=== PATIENT | male | born 1960 | race Hispanic/Latino ===

== ENCOUNTER 2019-09-04 12:48 | Inpatient (IN) | payer MEDICARE ==
[~2019-09-04] VITALS: Ht 177.8 cm; Wt 93.0 kg
[2019-09-04] MEDS: MIDODRINE HCL 5 MG TABLET PO SCH (06:00)
[2019-09-04] MEDS ORDERED: LIDOCAINE 2G/250ML 250 ML IV ONE (13:01)
[2019-09-04] MEDS ORDERED: LIDOCAINE PF 2% 5ML ABBOJECT IVP ONE (13:01)
[2019-09-04] MEDS ORDERED: AMIODARONE HCL 50 MG/ML 3 ML VIAL IVP ONE (13:01)
[2019-09-04] MEDS ORDERED: EPINEPHRINE 0.1 MG/ML 10 ML SYG IVP ONE (13:01)
[2019-09-04] MEDS ORDERED: DOPAMINE HCL 400 MG/D5%-WATER 250 ML IV ONE (13:01)
[2019-09-04] MEDS ORDERED: MAGNESIUM SULFATE 1 GM/2 ML VIAL IM ONE (13:01)
[2019-09-04] MEDS ORDERED: SODIUM BICARB 8.4% 50ML SYRINGE IVP ONE (13:01)
[2019-09-04] MEDS ORDERED: CALCIUM CHLORIDE 100 MG/ML 10 ML SYG IVP ONE (13:01)
[2019-09-04] MEDS ORDERED: NOREPINEPHRINE BITARTRATE 1 MG/1 ML ML IV ONE (13:01)
[2019-09-04 14:26] LABS: BASOPHILS % (AUTO) 1.1 % (0.0-5.0); EOSINOPHILS % (AUTO) 3.4 % (0.0-8.0); HEMATOCRIT 40.8 % (42-54); LYMPHOCYTES % (AUTO) 8.9 % (21.0-51.0); MEAN CORPUSCULAR HEMOGLOBIN 28.9 pg (27.0-33.0); MEAN CORPUSCULAR HGB CONC 32.4 g/dL (32.0-36.0); MEAN CORPUSCULAR VOLUME 89.5 fL (79-99); MONOCYTES % (AUTO) 8.7 % (3.0-13.0); NEUTROPHILS % (AUTO) 77.6 % (40.0-77.0); PLATELET COUNT (AUTO) 244 K/uL (130-400); RED BLOOD CELL COUNT(AUTO) 4.56 MIL/uL (4.50-6.20); RED CELL DISTRIBUTION WIDTH 16.2 % (11.0-15.5); WHITE BLOOD COUNT (AUTO) 10.9 K/uL (4.8-10.8)
[2019-09-04 14:27] LABS: INR 1.2 (0.85-1.15); PARTIAL THROMBOPLASTIN TIME 29.6 SEC (26.3-35.5); PROTHROMBIN TIME 12.5 SEC (9.6-11.6)
[2019-09-04 15:16] LABS: CREATININE 7.2 mg/dL (0.5-1.5); POTASSIUM 3.5 mmol/L (3.5-5.1)
[2019-09-04 20:00] VITALS: BP 126/64
[2019-09-04 20:25] VITALS: BP 126/64
--- NOTE | 2019-09-04 20:25 | NUR ---
ER ADMIT Admitted from ER accompanied per .Pt has left foot gangrene,wrapped with kerlix and amilcar wrap.As per pt.Dr Ghosh changed dressing in ER.Pt denies any pain or discomfort.[facility],Piv to left wrist.No redness,no swelling noted.Rt Bka uses prosthesis.Pt is Anuric,states he has Rt AV graft and goes MWF.Pt is pending to be seen by Dr Treviño as per ER nurse report Ele Gilman Np for Dr Treviño was notified in ER.
[2019-09-04] MEDS ORDERED: ALBUMIN (HUMAN) 25% 50 ML IV.SOLN. IV SCH (22:00)
[2019-09-04] MEDS ORDERED: DEXTROSE PO SCH (22:00)
[2019-09-04] MEDS ORDERED: GLUCAGON HCL 1 MG IJ SCH (22:00)
[2019-09-04] MEDS ORDERED: ARTIFICAL TEARS SOL 15 ML OP PRN (22:00)
[2019-09-04] MEDS ORDERED: [UNRECOGNIZED DRUG - OTHER] PO SCH (22:00)
[2019-09-04] MEDS ORDERED: HEPARIN SODIUM PORCINE IJ SCH (22:00)
[2019-09-04] MEDS ORDERED: INSULIN HUMULIN R 100 UNIT/ML 3ML SQ SCH (22:00)
[2019-09-04] MEDS ORDERED: METO5TAB2 PO (22:23)
[2019-09-04] MEDS ORDERED: SIME80TA12 PO (22:23)
[2019-09-04] MEDS ORDERED: HEPA500035 IVCATH (22:23)
[2019-09-04] MEDS ORDERED: GLUC1VIA14 IJ (22:23)
[2019-09-04] MEDS ORDERED: PANT40TA25 PO (22:23)
[2019-09-04] MEDS ORDERED: PROT946L PO (22:23)
[2019-09-04] MEDS ORDERED: INSU10VI3 SQ (22:23)
[2019-09-04] MEDS ORDERED: latanaprost OU (22:23)
[2019-09-04] MEDS ORDERED: LACT10SO9 PO (22:23)
[2019-09-04] MEDS ORDERED: SEVE800T7 PO (22:23)
[2019-09-04] MEDS ORDERED: CLOP75TA14 PO (22:23)
[2019-09-04] MEDS ORDERED: HYDR-4060 PO (22:23)
[2019-09-04] MEDS ORDERED: METO25TA6 PO (22:23)
[2019-09-04] MEDS ORDERED: CEFT1VIA IJ (22:23)
[2019-09-04] MEDS ORDERED: AEC81 PO (22:23)
[2019-09-04] MEDS ORDERED: ALBU50IV5 IV (22:23)
[2019-09-04] MEDS ORDERED: MIDO10TA PO (22:23)
[2019-09-04] MEDS ORDERED: INSREG SQ (22:23)
[2019-09-04] MEDS ORDERED: DEXT38GE12 PO (22:23)
[2019-09-04] MEDS ORDERED: LORA0.5T83 PO (22:23)
[2019-09-04] MEDS ORDERED: FOLI0.8T2 PO (22:23)
[2019-09-04] MEDS ORDERED: ISOS30TA6 PO (22:23)
[2019-09-04] MEDS ORDERED: ATOR10 PO (22:23)
[2019-09-04] MEDS ORDERED: RISP0.2515 PO (22:23)
[2019-09-04] MEDS ORDERED: ACET-2247 PO (22:23)
[2019-09-04] MEDS ORDERED: DEXT1DRO OP (22:23)
[2019-09-04] MEDS ORDERED: DEXT50DI9 IV (22:23)
[2019-09-04] MEDS ORDERED: GABA-531 PO (22:23)
[2019-09-04] MEDS: SIMETHICONE 80 MG TAB.CHEW PO SCH (23:14)
[2019-09-04] MEDS ORDERED: DEXTROSE 50%-WATER 50 ML DISP.SYRIN IV PRN (23:15)
[2019-09-04] MEDS ORDERED: GLUCAGON 1MG KIT 1 MG ML IM PRN (23:15)
[2019-09-04] MEDS: ACETAMINOPHEN 325 MG TAB PO PRN (23:15)
[2019-09-05] VITALS (7 sets, daily range): BP systolic 91–134; BP diastolic 45–77
[2019-09-05] MEDS: HYDROCODONE/ACETAMINOPHEN 5/325 MG TAB PO PRN (03:14)
[2019-09-05] MEDS: SIMETHICONE 80 MG TAB.CHEW PO SCH ×4 (04:00→22:11)
[2019-09-05] MEDS: METOCLOPRAMIDE 5 MG TABLET PO SCH ×3 (05:14→16:31)
[2019-09-05] MEDS: PANTOPRAZOLE SODIUM 40 MG TABLET.DR PO SCH (05:14)
[2019-09-05] MEDS: INSULIN HUMULIN R 100 UNIT/ML 3ML SQ SCH ×4 (06:06→20:47)
[2019-09-05] MEDS ORDERED: NITR0.4T SL (06:23)
[2019-09-05] MEDS ORDERED: NITROGLYCERIN 0.4 MG SL TAB SL PRN (06:30)
[2019-09-05] MEDS ORDERED: PROTEIN SUPPLEMENT PO SCH (09:00)
[2019-09-05] MEDS: METOPROLOL TARTRATE 25 MG TAB PO SCH ×2 (09:00→20:39)
--- NOTE | 2019-09-05 09:00 | NUR ---
DR AGUIRRE/NEPHRO CONSULT PAGED DR AGUIRRE REGARDING CONSULT FOR HD MWF, PENDING CB
[2019-09-05] MEDS: ASPIRIN 81 MG EC TAB PO SCH (09:28)
[2019-09-05] MEDS: CLOPIDOGREL BISULFATE 75 MG TAB PO SCH (09:29)
[2019-09-05] MEDS: ISOSORBIDE MONO 30MG TAB SR PO SCH (09:29)
[2019-09-05] MEDS: FOLIC ACID/VITAMIN B COMP W-C 1 CAP TAB PO SCH (09:29)
[2019-09-05] MEDS: SEVELAMER HCL 800 MG TABLET PO SCH ×3 (09:29→16:31)
[2019-09-05] MEDS: CEFTAZIDIME PENTAHYDRATE 1 GM/VIAL IV SCH (09:31)
[2019-09-05] MEDS: INSULIN HUMULIN 70/30 100 UNIT/ML 3ML SQ SCH ×2 (09:35→20:43)
--- NOTE | 2019-09-05 13:00 | NUR ---
INITIAL C,M NOTE AND DC PLAN RECD CALL FROM [facility] THAT PATIENT WAS AN ADMIT FROM [facility] FOR VASCULAR INTERVENTION AND IWLL RETURN TO COMPLETE ABX. SPOKE TO PURVI AT BEDSIDE, PT AIMEE, ALONE, LIVES WITH SON, HAS WC. PATIENT HAS BEEN ON HD FOR > 10 YEARS. PT AGREES WILL RETURN TO [facility] WHEN VASCULAR INTERVENTION COMPLETED, VERBAL SINDY OBTAINED, PT ON CONTACT PRECAUTIONS, NO FMAILY AT BEDSIDE, SCOTTIE COATES NOTIFIED, AWAITING MD INPUT -- WILL COMPLETE MOT/EMS FORMS Addendum: 09/07/19 at 0809 by WILLA SCHILLING RN CM Amended: Links added.
--- NOTE | 2019-09-05 19:39 | NUR ---
FF UP Paged dr pete re consult.
--- NOTE | 2019-09-05 19:47 | NUR ---
DIALYSIS Dr AGUIRRE notified re consult.Notified Juhi from dialysis.
[2019-09-05] MEDS: ATORVASTATIN CALCIUM 10 MG TABLET PO SCH (20:39)
[2019-09-05] MEDS: GABAPENTIN 300 MG CAPSULE PO SCH (20:47)
[2019-09-05] MEDS ORDERED: LATANOPROST 2.5 ML DROPS OU SCH (21:00)
--- NOTE | 2019-09-05 21:07 | NUR ---
MD Dr FROST HERE AND UPSET THAT DR PEARSON HAS NOT SHOWN UP YET.HE SAID HE WILL CALL HIM HIMSELF.HE SAID HE PUT PT IN THE HOSPITAL TO HAVE A BYPASS NOT BE SEEN BY CARDIOLOGY FOR INTERVENTION.
[2019-09-05] MEDS: LACTULOSE 20 GM/30 ML UDCUP PO PRN (22:11)
[2019-09-05] MEDS: RISPERIDONE 0.5 MG TABLET PO SCH (22:12)
[2019-09-06 03:00] VITALS: BP 122/57
[2019-09-06] MEDS: SIMETHICONE 80 MG TAB.CHEW PO SCH ×4 (04:39→22:42)
[2019-09-06 05:14] LABS: HEMATOCRIT 39.2 % (42-54); MEAN CORPUSCULAR HEMOGLOBIN 28.5 pg (27.0-33.0); MEAN CORPUSCULAR HGB CONC 31.9 g/dL (32.0-36.0); MEAN CORPUSCULAR VOLUME 89.3 fL (79-99); PLATELET COUNT (AUTO) 254 K/uL (130-400); RED BLOOD CELL COUNT(AUTO) 4.39 MIL/uL (4.50-6.20); RED CELL DISTRIBUTION WIDTH 15.9 % (11.0-15.5); WHITE BLOOD COUNT (AUTO) 10.2 K/uL (4.8-10.8)
[2019-09-06 05:29] LABS: MAGNESIUM 2.3 mg/dL (1.80-2.40); PHOSPHORUS 4.6 mg/dL (2.5-4.9); POTASSIUM 4.3 mmol/L (3.5-5.1)
[2019-09-06] MEDS: PANTOPRAZOLE SODIUM 40 MG TABLET.DR PO SCH (05:30)
[2019-09-06] MEDS: METOCLOPRAMIDE 5 MG TABLET PO SCH ×3 (05:30→16:58)
[2019-09-06 05:33] LABS: CREATININE 9.8 mg/dL (0.5-1.5)
[2019-09-06] MEDS: INSULIN HUMULIN R 100 UNIT/ML 3ML SQ SCH ×4 (06:01→20:52)
--- NOTE | 2019-09-06 06:38 | NUR ---
MIDODRINE Midodrine to be given 30 min prior to hemodialysis as per dialysis nurse.
[2019-09-06 07:30] VITALS: BP 95/56
[2019-09-06] MEDS: SEVELAMER HCL 800 MG TABLET PO SCH ×3 (08:00→16:58)
[2019-09-06] MEDS ORDERED: ARTIFICAL TEARS SOL 15 ML OP PRN (08:00)
[2019-09-06] MEDS: METOPROLOL TARTRATE 25 MG TAB PO SCH ×2 (08:21→20:43)
--- NOTE | 2019-09-06 08:30 | NUR ---
DR NINO MADE ROUNDS ON PATIENT ,PER MARY WILL PERSONALLY CALL DR FROST HIMSELF REGARDING PLAN
[2019-09-06] MEDS: CLOPIDOGREL BISULFATE 75 MG TAB PO SCH (08:46)
[2019-09-06] MEDS: ASPIRIN 81 MG EC TAB PO SCH (08:46)
[2019-09-06] MEDS: MIDODRINE HCL 5 MG TABLET PO SCH (08:46)
[2019-09-06] MEDS: FOLIC ACID/VITAMIN B COMP W-C 1 CAP TAB PO SCH (08:46)
[2019-09-06] MEDS: ISOSORBIDE MONO 30MG TAB SR PO SCH (09:00)
[2019-09-06] MEDS ORDERED: NITROGLYCERIN 0.4 MG SL TAB SL PRN (10:45)
[2019-09-06] MEDS ORDERED: SODIUM CHLORIDE 0.9% 1000ML 1,000 ML IV PRN (10:45)
[2019-09-06] MEDS ORDERED: ACETAMINOPHEN 325 MG TAB PO PRN (10:45)
[2019-09-06] MEDS ORDERED: 0.9% SODIUM CHLORIDE 1000 ML IV BAG IV PRN (10:45)
[2019-09-06 11:00] VITALS: BP 113/77
[2019-09-06] MEDS ORDERED: ALBUMIN (HUMAN) 25% 200 ML IV SCH (11:15)
--- NOTE | 2019-09-06 11:37 | NUR ---
CALLED TO DR FROST REGARDING DR CASTILLO CALLING HIM AND PLAN .. PER DID SPEAK WITH DR CASTILLO AND PER DR CASTILLO ALREADY SIGNED OFF AND GAVE HIS OPINION BUT STILL WANTING DR PEARSON REGARDING A SECOND OPINION PER FAMILY REQUEST IF SOMETHING CAN BE DONE ON CIRCULATION. ALSO STATED SPOKE WITH AGUILAR YESTERDAY BUT WAITING ON HER AND PEARSON TO EVALUATE PATIENT AND TO MAKE A DECISION ..
[2019-09-06] MEDS: ALBUMIN (HUMAN) 25% 50 ML IV SCH (11:50)
[2019-09-06] MEDS: INSULIN HUMULIN 70/30 100 UNIT/ML 3ML SQ SCH ×2 (11:57→20:51)
[2019-09-06 16:00] VITALS: BP 102/34
--- NOTE | 2019-09-06 16:07 | NUR ---
RD NOTIFICATION DX LEFT FOOT GANGRENE. DIET: RENAL DIALYSIS. PO INTAKE 100% AND HAS GOOD APPETITE. PT IS ON DIALYSIS AT THIS TIME. LABS REVIEWED (BUN 72, CRE 9.8, GFR 6). MEDS REVIEWED. S/P BKA, S/P AMPUTATIONS. LBM: 09/04. NO COMPLAINS OF N/V/C/D AT THIS TIME. RD RECOMMEND LOW PROTEIN DUE TO ELEVATED CRE RECOMMEND 500MG VITAMIN C BID - AID WOUND HEALING RECOMMEND 220MG ZINC SULFATE QD FOR 14 DAYS - AID WOUND HEALING MONITOR LABS, BM, PO INTAKE Addendum: 09/06/19 at [address] Amended: Links added.
[2019-09-06] MEDS: CEFTAZIDIME PENTAHYDRATE 1 GM/VIAL IV SCH (16:58)
[2019-09-06 19:00] VITALS: BP 99/52
[2019-09-06] MEDS: ATORVASTATIN CALCIUM 10 MG TABLET PO SCH (20:43)
[2019-09-06] MEDS: RISPERIDONE 0.5 MG TABLET PO SCH (20:43)
[2019-09-06] MEDS: GABAPENTIN 300 MG CAPSULE PO SCH (20:43)
--- NOTE | 2019-09-06 20:45 | NUR ---
MEDS SHIFT ASSESSMENT DONE, PLEASE REFER TO CHART. DUE MEDS ADMINISTERED, TOLERATED WELL. DR FROST IN AND CHANGED LEFT FOOT DRESSING. KEPT RESTED AND COMFORTABLE. CALL LIGHT WITHIN REACH. WILL MONITOR PT. PT'S SPOUSE AT BEDSIDE.
[2019-09-06] MEDS: LATANOPROST 2.5 ML DROPS OU SCH (21:26)
[2019-09-07] VITALS: BP 123/61
--- NOTE | 2019-09-07 02:00 | NUR ---
ROUNDS PT FAIRLY ASLEEP WITH RESPIRATIONS EVEN AND UNLABORED. NO NOTED DISTRESS. KEPT RESTED AND COMFORTABLE. CALL LIGHT WITHIN REACH. WILL MONITOR PT.
[2019-09-07 04:00] VITALS: BP 104/71
[2019-09-07] MEDS: SIMETHICONE 80 MG TAB.CHEW PO SCH ×4 (04:04→22:18)
[2019-09-07 04:48] LABS: HEMATOCRIT 39.9 % (42-54); MEAN CORPUSCULAR HGB CONC 31.8 g/dL (32.0-36.0); MEAN CORPUSCULAR VOLUME 91.1 fL (79-99); PLATELET COUNT (AUTO) 233 K/uL (130-400); RED BLOOD CELL COUNT(AUTO) 4.38 MIL/uL (4.50-6.20); RED CELL DISTRIBUTION WIDTH 16.3 % (11.0-15.5); WHITE BLOOD COUNT (AUTO) 9.1 K/uL (4.8-10.8)
[2019-09-07 05:34] LABS: CREATININE 7.8 mg/dL (0.5-1.5); POTASSIUM 4.3 mmol/L (3.5-5.1)
[2019-09-07] MEDS: METOCLOPRAMIDE 5 MG TABLET PO SCH ×3 (05:51→15:46)
[2019-09-07] MEDS: PANTOPRAZOLE SODIUM 40 MG TABLET.DR PO SCH ×2 (05:51→08:54)
--- NOTE | 2019-09-07 05:51 | NUR ---
MEDS DUE MEDS WERE ABOUT TO BE GIVEN BUT PT STATED HE WILL TAKE MEDS JUST BEFORE HE WILL EAT. EXPLAINED THAT MEDS CAN BE TAKEN 2 HRS PRIOR TO BREAKFAST. PT STILL CLAIMS HE WILL TAKE IT JUST BEFORE HE WILL EAT. WILL FOLLOW UP ON MEDS.
[2019-09-07] MEDS: INSULIN HUMULIN R 100 UNIT/ML 3ML SQ SCH ×4 (05:54→20:54)
[2019-09-07 07:30] VITALS: BP 93/65
[2019-09-07] MEDS: ISOSORBIDE MONO 30MG TAB SR PO SCH (08:53)
[2019-09-07] MEDS: FOLIC ACID/VITAMIN B COMP W-C 1 CAP TAB PO SCH (08:53)
[2019-09-07] MEDS: METOPROLOL TARTRATE 25 MG TAB PO SCH ×2 (08:53→22:02)
[2019-09-07] MEDS: CLOPIDOGREL BISULFATE 75 MG TAB PO SCH (08:54)
[2019-09-07] MEDS: ASPIRIN 81 MG EC TAB PO SCH (08:54)
[2019-09-07] MEDS: MIDODRINE HCL 5 MG TABLET PO SCH (08:54)
[2019-09-07] MEDS: SEVELAMER HCL 800 MG TABLET PO SCH ×3 (08:54→17:36)
[2019-09-07] MEDS: CEFTAZIDIME PENTAHYDRATE 1 GM/VIAL IV SCH (08:55)
[2019-09-07] MEDS: INSULIN HUMULIN 70/30 100 UNIT/ML 3ML SQ SCH ×2 (08:56→22:11)
[2019-09-07 11:00] VITALS: BP 112/78
[2019-09-07 16:00] VITALS: BP 119/73
[2019-09-07 19:00] VITALS: BP 124/77
[2019-09-07] MEDS: ATORVASTATIN CALCIUM 10 MG TABLET PO SCH (22:02)
[2019-09-07] MEDS: RISPERIDONE 0.5 MG TABLET PO SCH (22:02)
[2019-09-07] MEDS: GABAPENTIN 300 MG CAPSULE PO SCH (22:02)
[2019-09-07] MEDS: LATANOPROST 2.5 ML DROPS OU SCH (22:06)
[2019-09-08] VITALS (19 sets, daily range): BP systolic 106–134; BP diastolic 47–77
[2019-09-08] MEDS ORDERED: CEFAZOLIN SODIUM 1 GM VIAL IVP PRN
[2019-09-08] MEDS: SIMETHICONE 80 MG TAB.CHEW PO SCH ×4 (04:00→22:00)
[2019-09-08 04:41] LABS: HEMATOCRIT 41.4 % (42-54); MEAN CORPUSCULAR HEMOGLOBIN 28.6 pg (27.0-33.0); MEAN CORPUSCULAR HGB CONC 31.9 g/dL (32.0-36.0); MEAN CORPUSCULAR VOLUME 89.6 fL (79-99); PLATELET COUNT (AUTO) 245 K/uL (130-400); RED BLOOD CELL COUNT(AUTO) 4.62 MIL/uL (4.50-6.20); RED CELL DISTRIBUTION WIDTH 15.9 % (11.0-15.5)
[2019-09-08 04:51] LABS: INR 1.21 (0.85-1.15); PROTHROMBIN TIME 12.6 SEC (9.6-11.6)
[2019-09-08 04:52] LABS: POTASSIUM 4.5 mmol/L (3.5-5.1)
[2019-09-08 05:00] LABS: CREATININE 9.2 mg/dL (0.5-1.5)
[2019-09-08] MEDS: METOCLOPRAMIDE 5 MG TABLET PO SCH ×3 (06:40→16:18)
[2019-09-08] MEDS: INSULIN HUMULIN R 100 UNIT/ML 3ML SQ SCH ×4 (06:40→21:00)
[2019-09-08] MEDS: SEVELAMER HCL 800 MG TABLET PO SCH ×3 (08:00→16:18)
[2019-09-08] MEDS: ASPIRIN 81 MG EC TAB PO SCH (09:00)
[2019-09-08] MEDS: FOLIC ACID/VITAMIN B COMP W-C 1 CAP TAB PO SCH (09:00)
[2019-09-08] MEDS: CLOPIDOGREL BISULFATE 75 MG TAB PO SCH (09:00)
[2019-09-08] MEDS: ISOSORBIDE MONO 30MG TAB SR PO SCH (09:00)
[2019-09-08] MEDS: METOPROLOL TARTRATE 25 MG TAB PO SCH ×2 (09:00→21:00)
[2019-09-08] MEDS: CEFTAZIDIME PENTAHYDRATE 1 GM/VIAL IV SCH (09:10)
[2019-09-08] MEDS: INSULIN HUMULIN 70/30 100 UNIT/ML 3ML SQ SCH ×2 (09:18→21:00)
[2019-09-08] MEDS: MIDODRINE HCL 5 MG TABLET PO SCH (09:37)
[2019-09-08] MEDS: ALBUMIN (HUMAN) 25% 50 ML IV SCH (10:28)
[2019-09-08] MEDS ORDERED: VANCOMYCIN PROTOCOL PER PHARMACY IV SCH (13:00)
[2019-09-08] MEDS ORDERED: COMPOUND IV REFRIGERATED 1 EACH IVSOLN MISC PRN (13:15)
[2019-09-08] MEDS ORDERED: MIDAZOLAM HCL 1 MG/ML 2ML VIAL ONE (15:37)
[2019-09-08] MEDS ORDERED: DEXAMETHASONE SOD PHOSPHATE 10MG/ML 1ML VIAL ONE (15:37)
[2019-09-08] MEDS ORDERED: ONDANSETRON HCL 4 MG/2 ML VIAL ONE (15:37)
[2019-09-08] MEDS ORDERED: NEOSTIGMINE 5MG/5ML SYR IV ONE (15:37)
[2019-09-08] MEDS ORDERED: PROPOFOL 10 MG/ML 20ML VIAL IV ONE (15:37)
[2019-09-08] MEDS ORDERED: SUCCINYLCHOLINE 200MG/10ML SYR ONE (15:37)
[2019-09-08] MEDS ORDERED: GLYCOPYRROLATE 1 MG/5 ML SYRINGE ONE (15:37)
[2019-09-08] MEDS ORDERED: LIDOCAINE PF 2% 5ML ABBOJECT ONE (15:37)
[2019-09-08] MEDS ORDERED: ROCURONIUM 10MG/1ML SYR 10 MG/ML ML ONE (15:38)
[2019-09-08] MEDS ORDERED: FENTANYL CITRATE PF 50 MCG/1 ML 2ML VIAL ONE (15:38)
[2019-09-08] MEDS: DEXTROSE 50%-WATER 50 ML DISP.SYRIN IV SCH (15:44)
[2019-09-08] MEDS ORDERED: KETAMINE 50MG/ML SYRINGE 50 MG/ML DISP.SYRIN IV ONE (18:10)
[2019-09-08] MEDS ORDERED: EPHEDRINE SULFATE 50 MG/ML AMPULE ONE (18:34)
--- NOTE | 2019-09-08 18:39 | NUR ---
Report was given to Alvaro COATES, pt will be taken for procedure femoral bypass of left lower extremity and then will be place in room 204. Pt and were educated about the procedure and continuation of treatment.
[2019-09-08] MEDS ORDERED: CEFAZOLIN SODIUM 1 GM VIAL ONE ×2 (18:42→19:08)
[2019-09-08 19:33] LABS: ABG HCO3 30.4 mmol/L (21.0-28.0); ABG OXYGEN SATURATION 91.1 % (95.0-99.0); ABG PCO2 52 mmHg (35-48)
[2019-09-08 19:43] LABS: ABG BASE EXCESS -3.4 mmol/L (-2.0-3.0); ABG HCO3 22.3 mmol/L (21.0-28.0); ABG PCO2 42 mmHg (35-48)
[2019-09-08] MEDS ORDERED: MAGNESIUM SULFATE 1 GM/2 ML VIAL ONE (19:47)
[2019-09-08] MEDS ORDERED: PHENYLEPHRINE HCL 10 MG/ML 1ML VIAL IV ONE (19:49)
[2019-09-08] MEDS ORDERED: EPINEPHRINE 10 MG in SODIUM CHLORIDE 0.9% 250 ML IV SCH (20:00)
[2019-09-08] MEDS ORDERED: PHENYLEPHRINE HCL 50 MG in SODIUM CHLORIDE 0.9% 250 ML IV PRN (20:45)
[2019-09-08 20:48] LABS: ABG BASE EXCESS -10.6 mmol/L (-2.0-3.0); ABG HCO3 14.4 mmol/L (21.0-28.0); ABG OXYGEN SATURATION 91.7 % (95.0-99.0); ABG PCO2 30 mmHg (35-48)
[2019-09-08 20:55] LABS: BASOPHILS % (AUTO) 0.7 % (0.0-5.0); HEMATOCRIT 42.1 % (42-54); LYMPHOCYTES % (AUTO) 22.9 % (21.0-51.0); MEAN CORPUSCULAR HEMOGLOBIN 28.6 pg (27.0-33.0); MEAN CORPUSCULAR HGB CONC 31.4 g/dL (32.0-36.0); MEAN CORPUSCULAR VOLUME 91.3 fL (79-99); MONOCYTES % (AUTO) 4.1 % (3.0-13.0); NEUTROPHILS % (AUTO) 68.8 % (40.0-77.0); NUCLEATED RED BLOOD CELLS 0.2 % (0.0-0.19); PLATELET COUNT (AUTO) 214 K/uL (130-400); RED BLOOD CELL COUNT(AUTO) 4.61 MIL/uL (4.50-6.20); RED CELL DISTRIBUTION WIDTH 16.4 % (11.0-15.5); WHITE BLOOD COUNT (AUTO) 12.2 K/uL (4.8-10.8)
[2019-09-08] MEDS: LATANOPROST 2.5 ML DROPS OU SCH (21:00)
[2019-09-08] MEDS: RISPERIDONE 0.5 MG TABLET PO SCH (21:00)
[2019-09-08] MEDS: GABAPENTIN 300 MG CAPSULE PO SCH (21:00)
[2019-09-08] MEDS: ATORVASTATIN CALCIUM 10 MG TABLET PO SCH (21:00)
[2019-09-08 21:07] LABS: CREATININE 6.3 mg/dL (0.5-1.5); POTASSIUM 3.9 mmol/L (3.5-5.1)
[2019-09-08 21:11] LABS: ALBUMIN 2.3 g/dL (3.5-5.0); BILIRUBIN,TOTAL 2.3 mg/dL (0.2-1.0); MAGNESIUM 3.6 mg/dL (1.80-2.40); PHOSPHORUS 6.8 mg/dL (2.5-4.9); TOTAL PROTEIN, SERUM 7.2 g/dL (6.0-8.3)
[2019-09-08] MEDS ORDERED: SODIUM BICARB 50MEQ 50ML VIAL IV STA ×3 (21:24)
[2019-09-08] MEDS ORDERED: SODIUM BICARB 50MEQ 50ML VIAL ONE (21:28)
[2019-09-08] MEDS ORDERED: PROPOFOL 1000 MG/100 ML 100 ML IV ONE (21:41)
[2019-09-08] MEDS ORDERED: PROPOFOL 1000 MG/100 ML IV PRN (21:45)
--- NOTE | 2019-09-08 23:00 | NUR ---
Patient coded in OR 1935 to 1953. Transferred to CVR under the care of Dilip COATES. 2155 Assumed care of patient after patient transferred to room 218. Patient vented but arousable. Readily falls back asleep but follows command . 2300 Family in to see patient. Patient nods yes/no appropriately to simple questions.
[2019-09-08 23:02] LABS: ABG BASE EXCESS -0.8 mmol/L (-2.0-3.0); ABG HCO3 22.2 mmol/L (21.0-28.0); ABG OXYGEN SATURATION 99.3 % (95.0-99.0); ABG PCO2 32 mmHg (35-48)
[2019-09-09] VITALS (35 sets, daily range): BP systolic 90–137; BP diastolic 43–70
--- NOTE | 2019-09-09 01:00 | NUR ---
09/08/[address] Treviño here to see patient. 09/09/19 0015 Reported ABGs to Ele Ghosh HEAD CUSTODIAN . Orders received.
[2019-09-09 03:06] LABS: ABG BASE EXCESS -1.3 mmol/L (-2.0-3.0); ABG HCO3 22.1 mmol/L (21.0-28.0); ABG OXYGEN SATURATION 98.2 % (95.0-99.0); ABG PCO2 33 mmHg (35-48)
[2019-09-09] MEDS: SIMETHICONE 80 MG TAB.CHEW PO SCH ×4 (04:00→22:29)
--- NOTE | 2019-09-09 04:00 | NUR ---
FIO2 weaned to 60%. Lightly sedated on Propofol drip for patient comfort.
[2019-09-09 05:47] LABS: HEMATOCRIT 39.6 % (42-54); MEAN CORPUSCULAR HEMOGLOBIN 28.8 pg (27.0-33.0); MEAN CORPUSCULAR HGB CONC 32.3 g/dL (32.0-36.0); MEAN CORPUSCULAR VOLUME 89.2 fL (79-99); PLATELET COUNT (AUTO) 275 K/uL (130-400); RED BLOOD CELL COUNT(AUTO) 4.44 MIL/uL (4.50-6.20); RED CELL DISTRIBUTION WIDTH 16.3 % (11.0-15.5); WHITE BLOOD COUNT (AUTO) 15.5 K/uL (4.8-10.8)
[2019-09-09 06:02] LABS: CREATININE 7.1 mg/dL (0.5-1.5); POTASSIUM 3.7 mmol/L (3.5-5.1)
[2019-09-09] MEDS: INSULIN HUMULIN R 100 UNIT/ML 3ML SQ SCH ×4 (07:21→21:00)
[2019-09-09] MEDS: AMIODARONE HCL 450 MG in DEXTROSE 5%-WATER 250 ML IV SCH ×2 (07:23→21:58)
[2019-09-09 08:16] LABS: ABG BASE EXCESS 0.7 mmol/L (-2.0-3.0); ABG HCO3 23.3 mmol/L (21.0-28.0); ABG OXYGEN SATURATION 99.2 % (95.0-99.0); ABG PCO2 32 mmHg (35-48)
[2019-09-09] MEDS: METOPROLOL TARTRATE 25 MG TAB PO SCH ×2 (08:22→21:00)
[2019-09-09] MEDS: ISOSORBIDE MONO 30MG TAB SR PO SCH (08:22)
[2019-09-09] MEDS: INSULIN HUMULIN 70/30 100 UNIT/ML 3ML SQ SCH ×2 (09:00→22:32)
[2019-09-09] MEDS: PANTOPRAZOLE SODIUM 40 MG TABLET.DR PO SCH (09:34)
[2019-09-09] MEDS: ASPIRIN 81 MG EC TAB PO SCH (09:35)
[2019-09-09] MEDS: METOCLOPRAMIDE 5 MG TABLET PO SCH ×3 (09:35→16:48)
[2019-09-09] MEDS: CLOPIDOGREL BISULFATE 75 MG TAB PO SCH (09:35)
[2019-09-09] MEDS: FOLIC ACID/VITAMIN B COMP W-C 1 CAP TAB PO SCH (09:35)
[2019-09-09] MEDS: SEVELAMER HCL 800 MG TABLET PO SCH ×3 (09:35→16:48)
[2019-09-09] MEDS: CEFTAZIDIME PENTAHYDRATE 1 GM/VIAL IV SCH (10:25)
[2019-09-09] MEDS ORDERED: MORPHINE SULFATE 2 MG/ML 1ML SYG IM SCH (12:15)
[2019-09-09] MEDS ORDERED: MORPHINE SULFATE 2 MG/ML 1ML SYG IVP SCH (12:30)
[2019-09-09 13:28] LABS: ABG BASE EXCESS 2.3 mmol/L (-2.0-3.0); ABG HCO3 24.9 mmol/L (21.0-28.0); ABG OXYGEN SATURATION 98.9 % (95.0-99.0); ABG PCO2 33 mmHg (35-48)
[2019-09-09 15:16] LABS: ABG BASE EXCESS 3.7 mmol/L (-2.0-3.0); ABG HCO3 26.4 mmol/L (21.0-28.0); ABG OXYGEN SATURATION 97.6 % (95.0-99.0); ABG PCO2 34 mmHg (35-48)
--- NOTE | 2019-09-09 15:50 | NUR ---
notification to benchmark notified Anushka BLEACH CHLORINATOR of patient left hand being discolored, cold, and blue. Orders received and entered into system.
--- NOTE | 2019-09-09 17:16 | NUR ---
NOTIFICATION TO DR. PERKINS notified DR. PEARSON of patient left hand being discolored, cold, and blue. NO ORDERS RECEIVED
[2019-09-09] MEDS: GABAPENTIN 300 MG CAPSULE PO SCH (21:57)
[2019-09-09] MEDS: ATORVASTATIN CALCIUM 10 MG TABLET PO SCH (21:57)
[2019-09-09] MEDS: RISPERIDONE 0.5 MG TABLET PO SCH (22:22)
[2019-09-09] MEDS: LATANOPROST 2.5 ML DROPS OU SCH (22:23)
[2019-09-10] VITALS (34 sets, daily range): BP systolic 75–141; BP diastolic 36–85
[2019-09-10] MEDS: SIMETHICONE 80 MG TAB.CHEW PO SCH ×4 (02:57→22:33)
[2019-09-10 06:15] LABS: BASOPHILS % (AUTO) 0.8 % (0.0-5.0); EOSINOPHILS % (AUTO) 1.1 % (0.0-8.0); HEMATOCRIT 36.5 % (42-54); LYMPHOCYTES % (AUTO) 7.2 % (21.0-51.0); MEAN CORPUSCULAR HEMOGLOBIN 29.1 pg (27.0-33.0); MEAN CORPUSCULAR HGB CONC 32.6 g/dL (32.0-36.0); MEAN CORPUSCULAR VOLUME 89.2 fL (79-99); MONOCYTES % (AUTO) 7.7 % (3.0-13.0); NEUTROPHILS % (AUTO) 82.6 % (40.0-77.0); PLATELET COUNT (AUTO) 231 K/uL (130-400); RED BLOOD CELL COUNT(AUTO) 4.09 MIL/uL (4.50-6.20); RED CELL DISTRIBUTION WIDTH 16.1 % (11.0-15.5); WHITE BLOOD COUNT (AUTO) 15.9 K/uL (4.8-10.8)
[2019-09-10 06:38] LABS: POTASSIUM 4.6 mmol/L (3.5-5.1)
[2019-09-10 06:41] LABS: CREATININE 8.6 mg/dL (0.5-1.5)
[2019-09-10] MEDS: INSULIN HUMULIN R 100 UNIT/ML 3ML SQ SCH ×4 (07:30→21:00)
[2019-09-10] MEDS: ASPIRIN 81 MG EC TAB PO SCH (08:40)
[2019-09-10] MEDS: INSULIN HUMULIN 70/30 100 UNIT/ML 3ML SQ SCH ×2 (08:40→21:00)
[2019-09-10] MEDS: FOLIC ACID/VITAMIN B COMP W-C 1 CAP TAB PO SCH (08:40)
[2019-09-10] MEDS: SEVELAMER HCL 800 MG TABLET PO SCH ×3 (08:40→18:02)
[2019-09-10] MEDS: CLOPIDOGREL BISULFATE 75 MG TAB PO SCH (08:41)
[2019-09-10] MEDS: CEFTAZIDIME PENTAHYDRATE 1 GM/VIAL IV SCH (08:41)
[2019-09-10] MEDS: PANTOPRAZOLE SODIUM 40 MG TABLET.DR PO SCH (08:41)
[2019-09-10] MEDS: METOCLOPRAMIDE 5 MG TABLET PO SCH ×3 (08:41→18:03)
[2019-09-10] MEDS: METOPROLOL TARTRATE 25 MG TAB PO SCH ×2 (08:51→21:00)
[2019-09-10] MEDS: ISOSORBIDE MONO 30MG TAB SR PO SCH (08:51)
[2019-09-10] MEDS: LACTULOSE 20 GM/30 ML UDCUP PO PRN ×2 (09:42→18:02)
[2019-09-10] MEDS: HYDROCODONE/ACETAMINOPHEN 5/325 MG TAB PO PRN ×2 (11:29→18:17)
[2019-09-10] MEDS: MIDODRINE HCL 5 MG TABLET PO SCH ×2 (13:29→22:34)
--- NOTE | 2019-09-10 15:00 | NUR ---
Notification to cardiology Notified heart clinic SHAUNA MADDOX for Dr. Woods on patients left hand status and US results. No orders received.
--- NOTE | 2019-09-10 17:00 | NUR ---
Notification to Dr. Livia Bhakta notified in person of consult for patient and reason for consult. As per Dr. Bhakta he will see patient wednesday and evaluate.
[2019-09-10] MEDS: LATANOPROST 2.5 ML DROPS OU SCH (22:32)
[2019-09-10] MEDS: ATORVASTATIN CALCIUM 10 MG TABLET PO SCH (22:33)
[2019-09-10] MEDS: GABAPENTIN 300 MG CAPSULE PO SCH (22:33)
[2019-09-10] MEDS: RISPERIDONE 0.5 MG TABLET PO SCH (22:33)
[2019-09-10] MEDS: HEPARIN SODIUM 5000UNIT/ML 1ML VIAL SQ SCH (22:46)
[2019-09-11] VITALS (51 sets, daily range): BP systolic 105–177; BP diastolic 21–121
[2019-09-11] MEDS: SIMETHICONE 80 MG TAB.CHEW PO SCH ×4 (05:29→21:28)
[2019-09-11] MEDS: INSULIN HUMULIN R 100 UNIT/ML 3ML SQ SCH ×4 (05:51→20:20)
[2019-09-11 06:13] LABS: EOSINOPHILS % (AUTO) 3.1 % (0.0-8.0); HEMATOCRIT 37.1 % (42-54); LYMPHOCYTES % (AUTO) 11.8 % (21.0-51.0); MEAN CORPUSCULAR HEMOGLOBIN 28.7 pg (27.0-33.0); MEAN CORPUSCULAR HGB CONC 31.5 g/dL (32.0-36.0); MEAN CORPUSCULAR VOLUME 91.2 fL (79-99); MONOCYTES % (AUTO) 7.7 % (3.0-13.0); NEUTROPHILS % (AUTO) 75.9 % (40.0-77.0); PLATELET COUNT (AUTO) 203 K/uL (130-400); RED BLOOD CELL COUNT(AUTO) 4.07 MIL/uL (4.50-6.20); RED CELL DISTRIBUTION WIDTH 15.9 % (11.0-15.5); WHITE BLOOD COUNT (AUTO) 12.5 K/uL (4.8-10.8)
[2019-09-11 06:24] LABS: ALBUMIN 2.4 g/dL (3.5-5.0); BILIRUBIN,TOTAL 2.6 mg/dL (0.2-1.0); MAGNESIUM 2.6 mg/dL (1.80-2.40); PHOSPHORUS 5.5 mg/dL (2.5-4.9); POTASSIUM 4.8 mmol/L (3.5-5.1); TOTAL PROTEIN, SERUM 7.7 g/dL (6.0-8.3)
[2019-09-11 06:26] LABS: CREATININE 9.7 mg/dL (0.5-1.5)
[2019-09-11] MEDS: CEFTAZIDIME PENTAHYDRATE 1 GM/VIAL IV SCH (09:34)
[2019-09-11] MEDS: ISOSORBIDE MONO 30MG TAB SR PO SCH (09:34)
[2019-09-11] MEDS: FOLIC ACID/VITAMIN B COMP W-C 1 CAP TAB PO SCH (09:35)
[2019-09-11] MEDS: AMIODARONE HCL 200 MG TABLET PO SCH (09:35)
[2019-09-11] MEDS: SEVELAMER HCL 800 MG TABLET PO SCH ×3 (09:35→17:33)
[2019-09-11] MEDS: METOPROLOL TARTRATE 25 MG TAB PO SCH ×2 (09:36→21:09)
[2019-09-11] MEDS: MIDODRINE HCL 5 MG TABLET PO SCH ×3 (09:36→21:09)
[2019-09-11] MEDS: ASPIRIN 81 MG EC TAB PO SCH (09:36)
[2019-09-11] MEDS: CLOPIDOGREL BISULFATE 75 MG TAB PO SCH (09:36)
[2019-09-11] MEDS: HEPARIN SODIUM 5000UNIT/ML 1ML VIAL SQ SCH ×2 (09:36→21:08)
[2019-09-11] MEDS: INSULIN HUMULIN 70/30 100 UNIT/ML 3ML SQ SCH ×2 (09:38→20:19)
[2019-09-11] MEDS: METOCLOPRAMIDE 5 MG TABLET PO SCH ×3 (09:39→17:33)
[2019-09-11] MEDS: PANTOPRAZOLE SODIUM 40 MG TABLET.DR PO SCH (09:39)
[2019-09-11] MEDS: IPRATROPIUM/ALBUTEROL SULFATE 3 ML SOLUTION IH SCH ×3 (13:20→23:26)
[2019-09-11] MEDS: ACETYLCYSTEINE 10% 100MG/ML 4ML VIAL IH SCH ×3 (13:20→23:26)
--- NOTE | 2019-09-11 16:14 | NUR ---
Jose Raul MADDOX for Dr. Bhakta called to notify that he would not be able to follow up on the consult today but will see the patient tomorrow morning.
[2019-09-11] MEDS: GABAPENTIN 300 MG CAPSULE PO SCH (21:09)
[2019-09-11] MEDS: ATORVASTATIN CALCIUM 40 MG TABLET PO SCH (21:09)
[2019-09-11] MEDS: RISPERIDONE 0.5 MG TABLET PO SCH (21:09)
[2019-09-11] MEDS: LATANOPROST 2.5 ML DROPS OU SCH (21:23)
[2019-09-12] VITALS (25 sets, daily range): BP systolic 54–169; BP diastolic 14–105
[2019-09-12] MEDS: SIMETHICONE 80 MG TAB.CHEW PO SCH ×4 (03:13→21:03)
[2019-09-12] MEDS: INSULIN HUMULIN R 100 UNIT/ML 3ML SQ SCH ×4 (05:41→20:30)
[2019-09-12] MEDS: METOCLOPRAMIDE 5 MG TABLET PO SCH ×3 (06:31→16:07)
[2019-09-12] MEDS: PANTOPRAZOLE SODIUM 40 MG TABLET.DR PO SCH ×2 (06:31→08:23)
[2019-09-12 06:48] LABS: POTASSIUM 5.3 mmol/L (3.5-5.1)
[2019-09-12] MEDS: ACETYLCYSTEINE 10% 100MG/ML 4ML VIAL IH SCH ×4 (07:07→23:10)
[2019-09-12] MEDS: IPRATROPIUM/ALBUTEROL SULFATE 3 ML SOLUTION IH SCH ×4 (07:07→23:10)
[2019-09-12] MEDS: FOLIC ACID/VITAMIN B COMP W-C 1 CAP TAB PO SCH (08:21)
[2019-09-12] MEDS: AMIODARONE HCL 200 MG TABLET PO SCH (08:22)
[2019-09-12] MEDS: MIDODRINE HCL 5 MG TABLET PO SCH ×4 (08:22→21:03)
[2019-09-12] MEDS: ASPIRIN 81 MG EC TAB PO SCH (08:22)
[2019-09-12] MEDS: LACTULOSE 20 GM/30 ML UDCUP PO PRN (08:22)
[2019-09-12] MEDS: SEVELAMER HCL 800 MG TABLET PO SCH ×3 (08:22→16:07)
[2019-09-12] MEDS: CLOPIDOGREL BISULFATE 75 MG TAB PO SCH (08:22)
[2019-09-12] MEDS: ISOSORBIDE MONO 30MG TAB SR PO SCH (08:23)
[2019-09-12] MEDS: CEFTAZIDIME PENTAHYDRATE 1 GM/VIAL IV SCH (08:23)
[2019-09-12] MEDS: METOPROLOL TARTRATE 25 MG TAB PO SCH ×2 (08:23→19:10)
[2019-09-12] MEDS: HEPARIN SODIUM 5000UNIT/ML 1ML VIAL SQ SCH ×2 (08:25→20:36)
[2019-09-12] MEDS: INSULIN HUMULIN 70/30 100 UNIT/ML 3ML SQ SCH ×2 (08:26→20:30)
--- NOTE | 2019-09-12 11:00 | NUR ---
PA for Dr. Bhakta at bedside Notified of patients consult and reason for consult. Updated on patients condition including all doctors recommendation and cardiology's notes and recommendations. As Per Jose Raul PA, he will discuss with Dr. Bhakta thoroughly patients overall condition, history, doctors recommendations, Risk, notes, and evaluate for surgery. As per jose raul surgery will not happen today.
[2019-09-12] MEDS: VANCOMYCIN 1.25 GM in SODIUM CHLORIDE 0.9% 250 ML IV SCH (13:05)
--- NOTE | 2019-09-12 17:02 | NUR ---
Dr. Portillo notification Dr. Portillo updated on result of new arterial US of the left upper extremity. No further orders received.
[2019-09-12] MEDS ORDERED: SODIUM POLYSTYRENE SULFONATE 15 GM/60 ML ML PO SCH (18:15)
[2019-09-12] MEDS ORDERED: SODIUM POLYSTYRENE SULFONATE 15 GM/60 ML ML ONE (18:16)
[2019-09-12] MEDS: RISPERIDONE 0.5 MG TABLET PO SCH (21:03)
[2019-09-12] MEDS: ATORVASTATIN CALCIUM 40 MG TABLET PO SCH (21:03)
[2019-09-12] MEDS: GABAPENTIN 300 MG CAPSULE PO SCH (21:05)
[2019-09-12] MEDS: LATANOPROST 2.5 ML DROPS OU SCH (21:06)
[2019-09-13] VITALS (23 sets, daily range): BP systolic 39–166; BP diastolic 17–111
[2019-09-13] MEDS: SIMETHICONE 80 MG TAB.CHEW PO SCH ×4 (03:09→20:29)
[2019-09-13 04:07] LABS: BASOPHILS % (AUTO) 1.4 % (0.0-5.0); EOSINOPHILS % (AUTO) 3.8 % (0.0-8.0); HEMATOCRIT 36.2 % (42-54); LYMPHOCYTES % (AUTO) 10.5 % (21.0-51.0); MEAN CORPUSCULAR HEMOGLOBIN 29.2 pg (27.0-33.0); MEAN CORPUSCULAR HGB CONC 32.3 g/dL (32.0-36.0); MEAN CORPUSCULAR VOLUME 90.3 fL (79-99); MONOCYTES % (AUTO) 8.6 % (3.0-13.0); NEUTROPHILS % (AUTO) 75.3 % (40.0-77.0); PLATELET COUNT (AUTO) 278 K/uL (130-400); RED BLOOD CELL COUNT(AUTO) 4.01 MIL/uL (4.50-6.20); RED CELL DISTRIBUTION WIDTH 15.7 % (11.0-15.5); WHITE BLOOD COUNT (AUTO) 10.1 K/uL (4.8-10.8)
[2019-09-13 04:31] LABS: CREATININE 6.5 mg/dL (0.5-1.5); PHOSPHORUS 3.8 mg/dL (2.5-4.9); POTASSIUM 3.2 mmol/L (3.5-5.1)
[2019-09-13] MEDS: INSULIN HUMULIN R 100 UNIT/ML 3ML SQ SCH ×4 (05:46→20:51)
[2019-09-13] MEDS: IPRATROPIUM/ALBUTEROL SULFATE 3 ML SOLUTION IH SCH ×4 (06:40→23:18)
[2019-09-13] MEDS: ACETYLCYSTEINE 10% 100MG/ML 4ML VIAL IH SCH ×4 (06:40→23:18)
[2019-09-13] MEDS: SEVELAMER HCL 800 MG TABLET PO SCH ×3 (08:00→16:59)
[2019-09-13] MEDS: METOPROLOL TARTRATE 25 MG TAB PO SCH ×2 (08:24→20:28)
[2019-09-13] MEDS: HEPARIN SODIUM 5000UNIT/ML 1ML VIAL SQ SCH ×2 (08:56→20:30)
[2019-09-13] MEDS: ASPIRIN 81 MG EC TAB PO SCH (08:56)
[2019-09-13] MEDS: FOLIC ACID/VITAMIN B COMP W-C 1 CAP TAB PO SCH (08:56)
[2019-09-13] MEDS: MIDODRINE HCL 5 MG TABLET PO SCH ×3 (08:56→20:28)
[2019-09-13] MEDS: METOCLOPRAMIDE 5 MG TABLET PO SCH ×3 (08:56→17:04)
[2019-09-13] MEDS: INSULIN HUMULIN 70/30 100 UNIT/ML 3ML SQ SCH ×2 (09:00→20:51)
[2019-09-13] MEDS: CEFTAZIDIME PENTAHYDRATE 1 GM/VIAL IV SCH (09:07)
[2019-09-13] MEDS: ALBUMIN (HUMAN) 25% 100 ML IV PRN (12:44)
--- NOTE | 2019-09-13 13:34 | NUR ---
DR FROST -NOTIFIED INFORMED OF NEED FOR CONFIRMATION OF AKA VS BKA- HE ASKED THAT DR CASTILLO BE NOTIFIED FOR THAT RECOMMENDATION. I WILL LET ATTENDING DR KNOW ON HIS ROUNDS
--- NOTE | 2019-09-13 14:28 | NUR ---
DR BAUTISTA HERE-UPDATED ON PT CURRENT STATUS...HE CALLED AND SPOKE TO DR CASTILLO.. SURGICAL STATUS PENDING.. PLEASE REFER TO MD NOTES AND ORDERS
[2019-09-13] MEDS: VANCOMYCIN 1.25 GM in SODIUM CHLORIDE 0.9% 250 ML IV SCH (15:25)
--- NOTE | 2019-09-13 15:29 | NUR ---
NAGI FOLLOW UP DIET: RENAL DIALYSIS, 75GMCCD. PO INTAKE 50-75% AND HAS STEADY APPETITE. PT REQUESTED SOFT/CHOPPED FOODS DUE TO CHEWING DIFFICULTIES. LABS REVIEWED. MEDS REVIEWED. PT RECEIVING DIALYSIS AT TIME OF VISIT. NO COMPLAINTS OF N/V/C/D AT THIS TIME. ADD MECHANICAL SOFT/CHOPPED TO DIET ORDER MONITOR TOLERANCE, LABS, BM Addendum: 09/13/19 at [address] Amended: Links added.
[2019-09-13] MEDS: CLOPIDOGREL BISULFATE 75 MG TAB PO SCH (15:34)
[2019-09-13] MEDS: AMIODARONE HCL 200 MG TABLET PO SCH (15:34)
[2019-09-13] MEDS: ISOSORBIDE MONO 30MG TAB SR PO SCH (15:35)
--- NOTE | 2019-09-13 16:00 | NUR ---
[facility] CONSULT PATIENT ASSESSED REQUESTED: PATIENT PRESENTS WITH WOUND TO LEFT HAND SECONDARY TO INFECTION; [facility] RECOMMENDATIONS SUBMITTED. Addendum: 09/15/19 at 1322 by KINZA YING LVN LVN W Amended: Links added.
--- NOTE | 2019-09-13 16:15 | NUR ---
WOUND CARE NURSE KINZA HERE TO SEE PT- DRESSING CHANGED -RECOMMENDATIONS GIVEN
--- NOTE | 2019-09-13 16:44 | NUR ---
DR BAUTISTA CAME TO TALK TO PT- HE EXPLAINED RISK OF ANESTHESIA AND . PT VERBALIZED UNDERSTANDING AND WOULD TALK TO HIS WHEN SHE ARRIVES
--- NOTE | 2019-09-13 19:28 | NUR ---
HAND OFF REPORT GIVEN TO KINZA COATES....DR FROST HERE -SPOKE TO PT AND FAMILY. FOOT WORSENING PER DR FROST. INFORMED FAMILY THAT DR MESA WOULD NEED TO TALK TO DR CASTILLO TO DETERMINE IF PT SHOULD HAVE AKA VS BKA.DR FROST CHANGED LEFT FOOT DRESSING
[2019-09-13] MEDS: ATORVASTATIN CALCIUM 40 MG TABLET PO SCH (20:28)
[2019-09-13] MEDS: GABAPENTIN 300 MG CAPSULE PO SCH (20:29)
[2019-09-13] MEDS: RISPERIDONE 0.5 MG TABLET PO SCH (20:29)
[2019-09-13] MEDS: LATANOPROST 2.5 ML DROPS OU SCH (20:51)
[2019-09-14] VITALS (22 sets, daily range): BP systolic 85–161; BP diastolic 41–110
[2019-09-14 03:42] LABS: HEMATOCRIT 36.5 % (42-54); MEAN CORPUSCULAR HGB CONC 31.5 g/dL (32.0-36.0); MEAN CORPUSCULAR VOLUME 92.2 fL (79-99); PLATELET COUNT (AUTO) 207 K/uL (130-400); RED BLOOD CELL COUNT(AUTO) 3.96 MIL/uL (4.50-6.20); RED CELL DISTRIBUTION WIDTH 15.9 % (11.0-15.5); WHITE BLOOD COUNT (AUTO) 11.4 K/uL (4.8-10.8)
[2019-09-14 03:55] LABS: CREATININE 7.1 mg/dL (0.5-1.5); POTASSIUM 4.3 mmol/L (3.5-5.1)
[2019-09-14] MEDS: SIMETHICONE 80 MG TAB.CHEW PO SCH ×4 (04:14→22:33)
[2019-09-14] MEDS: INSULIN HUMULIN R 100 UNIT/ML 3ML SQ SCH ×4 (06:00→20:42)
[2019-09-14] MEDS: PANTOPRAZOLE SODIUM 40 MG TABLET.DR PO SCH (06:45)
[2019-09-14] MEDS: METOCLOPRAMIDE 5 MG TABLET PO SCH ×3 (06:45→16:33)
[2019-09-14] MEDS: ACETYLCYSTEINE 10% 100MG/ML 4ML VIAL IH SCH ×4 (07:11→23:19)
[2019-09-14] MEDS: IPRATROPIUM/ALBUTEROL SULFATE 3 ML SOLUTION IH SCH ×4 (07:11→23:19)
[2019-09-14] MEDS: AMIODARONE HCL 200 MG TABLET PO SCH (08:17)
[2019-09-14] MEDS: ASPIRIN 81 MG EC TAB PO SCH (08:18)
[2019-09-14] MEDS: HYDROCODONE/ACETAMINOPHEN 5/325 MG TAB PO PRN (08:18)
[2019-09-14] MEDS: INSULIN HUMULIN 70/30 100 UNIT/ML 3ML SQ SCH ×2 (08:29→20:44)
[2019-09-14] MEDS: HEPARIN SODIUM 5000UNIT/ML 1ML VIAL SQ SCH ×2 (08:30→20:40)
[2019-09-14] MEDS: SEVELAMER HCL 800 MG TABLET PO SCH ×3 (08:35→16:32)
[2019-09-14] MEDS: FOLIC ACID/VITAMIN B COMP W-C 1 CAP TAB PO SCH (08:35)
[2019-09-14] MEDS: CEFTAZIDIME PENTAHYDRATE 1 GM/VIAL IV SCH (08:35)
[2019-09-14] MEDS: MIDODRINE HCL 5 MG TABLET PO SCH ×3 (08:38→20:39)
[2019-09-14] MEDS: ISOSORBIDE MONO 30MG TAB SR PO SCH (08:40)
[2019-09-14] MEDS: METOPROLOL TARTRATE 25 MG TAB PO SCH ×2 (08:40→20:39)
[2019-09-14] MEDS: CLOPIDOGREL BISULFATE 75 MG TAB PO SCH (08:41)
[2019-09-14] MEDS: HONEY 1 APPL/ML TUBE TP SCH (08:42)
[2019-09-14] MEDS: ACETAMINOPHEN 325 MG TAB PO PRN (10:47)
[2019-09-14] MEDS: LATANOPROST 2.5 ML DROPS OU SCH (20:38)
[2019-09-14] MEDS: GABAPENTIN 300 MG CAPSULE PO SCH (20:39)
[2019-09-14] MEDS: ATORVASTATIN CALCIUM 40 MG TABLET PO SCH (20:39)
[2019-09-14] MEDS: RISPERIDONE 0.5 MG TABLET PO SCH (20:55)
[2019-09-15] VITALS (27 sets, daily range): BP systolic 96–179; BP diastolic 18–111
[2019-09-15] MEDS: HYDROCODONE/ACETAMINOPHEN 5/325 MG TAB PO PRN ×2 (01:40→16:06)
[2019-09-15] MEDS: SIMETHICONE 80 MG TAB.CHEW PO SCH ×4 (05:22→21:17)
[2019-09-15] MEDS: INSULIN HUMULIN R 100 UNIT/ML 3ML SQ SCH ×4 (06:37→21:15)
[2019-09-15] MEDS: METOCLOPRAMIDE 5 MG TABLET PO SCH ×3 (06:48→16:06)
[2019-09-15] MEDS: PANTOPRAZOLE SODIUM 40 MG TABLET.DR PO SCH (06:48)
[2019-09-15] MEDS: IPRATROPIUM/ALBUTEROL SULFATE 3 ML SOLUTION IH SCH ×4 (07:08→23:49)
[2019-09-15] MEDS: ACETYLCYSTEINE 10% 100MG/ML 4ML VIAL IH SCH ×2 (07:11→11:17)
--- NOTE | 2019-09-15 07:38 | NUR ---
NO ACUTE DISTRESS NOTED- PENDING HEMODIALYSIS TODAY- SURGICAL STATUS PENDING
[2019-09-15] MEDS: SEVELAMER HCL 800 MG TABLET PO SCH ×3 (07:45→16:06)
--- NOTE | 2019-09-15 08:06 | NUR ---
ANNIE Nguyen PAGED TO CONFIRM SURGICAL STATUS
--- NOTE | 2019-09-15 08:31 | NUR ---
NO SURGERY TODAY PER Gayatri Nguyen.. PT IS MADE AWARE.. PT STATES THAT HE IS CONSENTING FOR SURGERY WHENEVER THAT MAY BE
[2019-09-15] MEDS: ASPIRIN 81 MG EC TAB PO SCH (08:37)
[2019-09-15] MEDS: FOLIC ACID/VITAMIN B COMP W-C 1 CAP TAB PO SCH (08:37)
[2019-09-15] MEDS: MIDODRINE HCL 5 MG TABLET PO SCH ×3 (08:37→20:05)
[2019-09-15] MEDS: HEPARIN SODIUM 5000UNIT/ML 1ML VIAL SQ SCH ×2 (08:38→20:08)
[2019-09-15] MEDS: INSULIN HUMULIN 70/30 100 UNIT/ML 3ML SQ SCH ×2 (08:39→21:14)
[2019-09-15] MEDS: METOPROLOL TARTRATE 25 MG TAB PO SCH (08:42)
[2019-09-15] MEDS: HONEY 1 APPL/ML TUBE TP SCH (08:44)
--- NOTE | 2019-09-15 10:42 | NUR ---
HEMODIALYSIS IN PROGRESS- PLEASE REFER TO HD RECORD
--- NOTE | 2019-09-15 11:59 | NUR ---
HEMODIALYSIS IN PROGRESS-NO ACUTE DISTRESS NOTED- MEDS PENDING FROM AM AFTER HD
[2019-09-15] MEDS: ALBUMIN (HUMAN) 25% 100 ML IV PRN (12:03)
[2019-09-15] MEDS: ISOSORBIDE MONO 30MG TAB SR PO SCH (13:41)
[2019-09-15] MEDS: AMIODARONE HCL 200 MG TABLET PO SCH (13:41)
[2019-09-15] MEDS: CLOPIDOGREL BISULFATE 75 MG TAB PO SCH (13:42)
[2019-09-15] MEDS: MEROPENEM 1 GM VIAL IVP SCH (13:42)
--- NOTE | 2019-09-15 17:00 | NUR ---
CHANELLE MADDXO CAME TO SEE PT- STATED THAT PT NOT ON DR MESA LIST. ALSO STATED PT MIGHT HAVE SURGERY TOMORROW. HE WOULD CALL ME BACK LATER TO LET ME KNOW
[2019-09-15] MEDS: VANCOMYCIN 1.25 GM in SODIUM CHLORIDE 0.9% 250 ML IV SCH (17:18)
--- NOTE | 2019-09-15 18:40 | NUR ---
NO CALL BACK FROM Gayatri MESA...NO ORDERS FOR SURGERY Addendum: 09/15/19 at 1841 by MARYCARMEN VILLAREAL RN RN PT IS ON DR BONITA CHURCH
--- NOTE | 2019-09-15 19:14 | NUR ---
HAND OFF REPORT GIVEN TO DINORA COATES
[2019-09-15] MEDS: ATORVASTATIN CALCIUM 40 MG TABLET PO SCH (20:05)
[2019-09-15] MEDS: GABAPENTIN 300 MG CAPSULE PO SCH (20:06)
[2019-09-15] MEDS: RISPERIDONE 0.5 MG TABLET PO SCH (20:06)
[2019-09-15] MEDS: LATANOPROST 2.5 ML DROPS OU SCH (20:07)
[2019-09-16] VITALS (34 sets, daily range): BP systolic 109–154; BP diastolic 46–109
[2019-09-16] MEDS: HYDROCODONE/ACETAMINOPHEN 5/325 MG TAB PO PRN ×3 (03:40→22:59)
[2019-09-16] MEDS: SIMETHICONE 80 MG TAB.CHEW PO SCH ×4 (03:44→21:02)
[2019-09-16 03:57] LABS: MEAN CORPUSCULAR HEMOGLOBIN 28.7 pg (27.0-33.0); MEAN CORPUSCULAR HGB CONC 31.4 g/dL (32.0-36.0); MEAN CORPUSCULAR VOLUME 91.6 fL (79-99); PLATELET COUNT (AUTO) 183 K/uL (130-400); RED BLOOD CELL COUNT(AUTO) 4.04 MIL/uL (4.50-6.20); RED CELL DISTRIBUTION WIDTH 16.1 % (11.0-15.5); WHITE BLOOD COUNT (AUTO) 14.6 K/uL (4.8-10.8)
[2019-09-16 04:13] LABS: BAND NEUTROPHILS % (MANUAL) 1 % (0-2); EOSINOPHILS % (MANUAL) 3 % (1-6); LYMPHOCYTES % (MANUAL) 14 % (22-44); METAMYELOCYTES % 1 % (0-0); MONOCYTES % (MANUAL) 9 % (2-9); SEGMENTED NEUTROPHILS % 72 % (40-70)
[2019-09-16 04:14] LABS: MAN.DIFF COMMENT-IMPRESSION MANUAL DIFFERENTIAL
[2019-09-16 05:59] LABS: ALBUMIN 2.6 g/dL (3.5-5.0); BILIRUBIN,TOTAL 1.9 mg/dL (0.2-1.0); CREATININE 6.7 mg/dL (0.5-1.5); PHOSPHORUS 3.8 mg/dL (2.5-4.9); POTASSIUM 3.8 mmol/L (3.5-5.1); TOTAL PROTEIN, SERUM 7.7 g/dL (6.0-8.3)
[2019-09-16] MEDS: INSULIN HUMULIN R 100 UNIT/ML 3ML SQ SCH ×4 (06:03→20:40)
[2019-09-16] MEDS: METOCLOPRAMIDE 5 MG TABLET PO SCH ×3 (06:13→13:39)
[2019-09-16] MEDS: PANTOPRAZOLE SODIUM 40 MG TABLET.DR PO SCH (06:13)
[2019-09-16] MEDS: IPRATROPIUM/ALBUTEROL SULFATE 3 ML SOLUTION IH SCH ×4 (06:17→23:24)
[2019-09-16] MEDS: FOLIC ACID/VITAMIN B COMP W-C 1 CAP TAB PO SCH (08:06)
[2019-09-16] MEDS: ASPIRIN 81 MG EC TAB PO SCH (08:06)
[2019-09-16] MEDS: SEVELAMER HCL 800 MG TABLET PO SCH ×3 (08:06→16:20)
[2019-09-16] MEDS: AMIODARONE HCL 200 MG TABLET PO SCH (08:07)
[2019-09-16] MEDS: HEPARIN SODIUM 5000UNIT/ML 1ML VIAL SQ SCH ×2 (08:14→21:01)
[2019-09-16] MEDS: INSULIN HUMULIN 70/30 100 UNIT/ML 3ML SQ SCH ×2 (08:18→21:00)
[2019-09-16] MEDS: ISOSORBIDE MONO 30MG TAB SR PO SCH (08:26)
[2019-09-16] MEDS: CLOPIDOGREL BISULFATE 75 MG TAB PO SCH (08:26)
[2019-09-16] MEDS: MIDODRINE HCL 5 MG TABLET PO SCH ×3 (08:27→20:39)
[2019-09-16] MEDS: HONEY 1 APPL/ML TUBE TP SCH (08:27)
[2019-09-16] MEDS: MEROPENEM 1 GM VIAL IVP SCH (08:29)
--- NOTE | 2019-09-16 11:23 | NUR ---
Called Dr. Bhakta's office spoke with Joslyn, she stated she will notify Dr. Bhakta of re-consult for left hand cellulitis.
--- NOTE | 2019-09-16 11:33 | NUR ---
I have spoken with Dr. Bhakta over the phone about consult for left hand cellulitis. is now aware and stated he will be in surgeries all day and may or may not be able to see the patient today.
[2019-09-16] MEDS: LORAZEPAM 0.5 MG TABLET PO PRN (13:39)
[2019-09-16] MEDS: LATANOPROST 2.5 ML DROPS OU SCH (20:38)
[2019-09-16] MEDS: GABAPENTIN 300 MG CAPSULE PO SCH (20:39)
[2019-09-16] MEDS: ATORVASTATIN CALCIUM 40 MG TABLET PO SCH (20:39)
[2019-09-16] MEDS: RISPERIDONE 0.5 MG TABLET PO SCH (20:40)
[2019-09-17] VITALS (24 sets, daily range): BP systolic 92–150; BP diastolic 21–101
[2019-09-17] MEDS: SIMETHICONE 80 MG TAB.CHEW PO SCH ×4 (03:09→22:06)
[2019-09-17 04:18] LABS: HEMATOCRIT 34.7 % (42-54); MEAN CORPUSCULAR HEMOGLOBIN 28.9 pg (27.0-33.0); MEAN CORPUSCULAR HGB CONC 31.7 g/dL (32.0-36.0); MEAN CORPUSCULAR VOLUME 91.3 fL (79-99); PLATELET COUNT (AUTO) 224 K/uL (130-400); WHITE BLOOD COUNT (AUTO) 11.9 K/uL (4.8-10.8)
[2019-09-17 04:38] LABS: MAGNESIUM 2.2 mg/dL (1.80-2.40); PHOSPHORUS 4.2 mg/dL (2.5-4.9); POTASSIUM 4.6 mmol/L (3.5-5.1)
[2019-09-17 04:49] LABS: CREATININE 8.4 mg/dL (0.5-1.5)
[2019-09-17] MEDS: IPRATROPIUM/ALBUTEROL SULFATE 3 ML SOLUTION IH SCH ×4 (06:12→23:06)
[2019-09-17] MEDS: METOCLOPRAMIDE 5 MG TABLET PO SCH ×3 (06:53→16:50)
[2019-09-17] MEDS: LACTULOSE 20 GM/30 ML UDCUP PO PRN (06:53)
[2019-09-17] MEDS: PANTOPRAZOLE SODIUM 40 MG TABLET.DR PO SCH (06:53)
[2019-09-17] MEDS: INSULIN HUMULIN R 100 UNIT/ML 3ML SQ SCH ×4 (06:57→21:00)
[2019-09-17] MEDS: SEVELAMER HCL 800 MG TABLET PO SCH ×3 (08:02→16:51)
[2019-09-17] MEDS: ASPIRIN 81 MG EC TAB PO SCH (08:41)
[2019-09-17] MEDS: FOLIC ACID/VITAMIN B COMP W-C 1 CAP TAB PO SCH (08:41)
[2019-09-17] MEDS: AMIODARONE HCL 200 MG TABLET PO SCH (08:42)
[2019-09-17] MEDS: CLOPIDOGREL BISULFATE 75 MG TAB PO SCH (08:42)
[2019-09-17] MEDS: MIDODRINE HCL 5 MG TABLET PO SCH ×3 (08:42→20:58)
[2019-09-17] MEDS: ISOSORBIDE MONO 30MG TAB SR PO SCH (08:43)
[2019-09-17] MEDS: HEPARIN SODIUM 5000UNIT/ML 1ML VIAL SQ SCH ×2 (08:51→21:00)
[2019-09-17] MEDS: INSULIN HUMULIN 70/30 100 UNIT/ML 3ML SQ SCH ×2 (08:52→21:00)
[2019-09-17] MEDS: HONEY 1 APPL/ML TUBE TP SCH (09:08)
[2019-09-17] MEDS: MEROPENEM 1 GM VIAL IVP SCH (11:45)
[2019-09-17] MEDS: ATORVASTATIN CALCIUM 40 MG TABLET PO SCH (20:57)
[2019-09-17] MEDS: LATANOPROST 2.5 ML DROPS OU SCH (20:57)
[2019-09-17] MEDS: GABAPENTIN 300 MG CAPSULE PO SCH (20:58)
[2019-09-17] MEDS: RISPERIDONE 0.5 MG TABLET PO SCH (20:58)
[2019-09-17] MEDS: HYDROCODONE/ACETAMINOPHEN 5/325 MG TAB PO PRN (21:01)
[2019-09-18] VITALS (41 sets, daily range): BP systolic 75–148; BP diastolic 44–91
[2019-09-18] MEDS: SIMETHICONE 80 MG TAB.CHEW PO SCH ×4 (03:42→21:51)
[2019-09-18] MEDS: METOCLOPRAMIDE 5 MG TABLET PO SCH ×3 (03:42→17:12)
[2019-09-18 03:58] LABS: BASOPHILS % (AUTO) 1.2 % (0.0-5.0); EOSINOPHILS % (AUTO) 3.4 % (0.0-8.0); HEMATOCRIT 35.9 % (42-54); LYMPHOCYTES % (AUTO) 10.9 % (21.0-51.0); MEAN CORPUSCULAR HEMOGLOBIN 28.6 pg (27.0-33.0); MEAN CORPUSCULAR HGB CONC 31.5 g/dL (32.0-36.0); MEAN CORPUSCULAR VOLUME 90.9 fL (79-99); MONOCYTES % (AUTO) 9.6 % (3.0-13.0); NEUTROPHILS % (AUTO) 74.3 % (40.0-77.0); PLATELET COUNT (AUTO) 255 K/uL (130-400); RED BLOOD CELL COUNT(AUTO) 3.95 MIL/uL (4.50-6.20); RED CELL DISTRIBUTION WIDTH 15.9 % (11.0-15.5); WHITE BLOOD COUNT (AUTO) 12.2 K/uL (4.8-10.8)
[2019-09-18 04:10] LABS: INR 2.56 (0.85-1.15); PARTIAL THROMBOPLASTIN TIME 47.3 SEC (26.3-35.5); PROTHROMBIN TIME 25.9 SEC (9.6-11.6)
[2019-09-18 04:17] LABS: POTASSIUM 4.8 mmol/L (3.5-5.1)
[2019-09-18 04:38] LABS: CREATININE 9.6 mg/dL (0.5-1.5)
[2019-09-18] MEDS: INSULIN HUMULIN R 100 UNIT/ML 3ML SQ SCH ×4 (04:54→21:00)
[2019-09-18] MEDS: DEXTROSE 50%-WATER 50 ML DISP.SYRIN IV SCH (05:57)
[2019-09-18] MEDS: IPRATROPIUM/ALBUTEROL SULFATE 3 ML SOLUTION IH SCH ×4 (06:12→23:51)
[2019-09-18] MEDS: PANTOPRAZOLE SODIUM 40 MG TABLET.DR PO SCH ×2 (07:01→08:29)
[2019-09-18] MEDS ORDERED: ACETAMINOPHEN 325 MG TAB PO PRN (07:45)
[2019-09-18] MEDS ORDERED: SODIUM CHLORIDE 0.9% 1000ML 1,000 ML IV PRN (07:45)
[2019-09-18] MEDS ORDERED: HEPARIN SODIUM 5000UNIT/ML 1ML VIAL IJ PRN ×2 (07:45)
[2019-09-18] MEDS ORDERED: 0.9% SODIUM CHLORIDE 1000 ML IV BAG IV PRN (07:45)
[2019-09-18] MEDS ORDERED: LIDOCAINE HCL-MPF 1% 2ML VIAL IJ PRN (07:45)
[2019-09-18] MEDS ORDERED: NITROGLYCERIN 0.4 MG SL TAB SL PRN (07:45)
[2019-09-18] MEDS: AMIODARONE HCL 200 MG TABLET PO SCH (08:29)
[2019-09-18] MEDS: FOLIC ACID/VITAMIN B COMP W-C 1 CAP TAB PO SCH (08:29)
[2019-09-18] MEDS: ASPIRIN 81 MG EC TAB PO SCH (08:29)
[2019-09-18] MEDS: LORAZEPAM 0.5 MG TABLET PO PRN ×2 (08:30→14:30)
[2019-09-18] MEDS: SEVELAMER HCL 800 MG TABLET PO SCH ×3 (08:30→17:00)
[2019-09-18] MEDS: CLOPIDOGREL BISULFATE 75 MG TAB PO SCH (08:31)
[2019-09-18] MEDS: INSULIN HUMULIN 70/30 100 UNIT/ML 3ML SQ SCH ×2 (08:32→21:00)
[2019-09-18] MEDS: HEPARIN SODIUM 5000UNIT/ML 1ML VIAL SQ SCH (08:32)
[2019-09-18] MEDS: MEROPENEM 1 GM VIAL IVP SCH (08:43)
[2019-09-18] MEDS: MIDODRINE HCL 5 MG TABLET PO SCH ×3 (08:43→21:50)
[2019-09-18] MEDS: HONEY 1 APPL/ML TUBE TP SCH (08:44)
[2019-09-18] MEDS: ISOSORBIDE MONO 30MG TAB SR PO SCH (08:44)
[2019-09-18] MEDS: HYDROCODONE/ACETAMINOPHEN 5/325 MG TAB PO PRN (14:30)
[2019-09-18] MEDS: HYDROMORPHONE HCL 0.5 MG/0.5 ML ML IVP PRN (15:03)
[2019-09-18] MEDS: ACETAMINOPHEN 325 MG TAB PO PRN (17:02)
--- NOTE | 2019-09-18 18:13 | NUR ---
Dr. Soto called per Dr. Han. for consult. pending return phone call Addendum: 09/18/19 at 1816 by PALMIRA TABOR RN RN disregard not, wrong patient
[2019-09-18] MEDS: PHYTONADIONE 10 MG/1 ML AMP IM SCH (18:40)
[2019-09-18] MEDS: GABAPENTIN 300 MG CAPSULE PO SCH (21:50)
[2019-09-18] MEDS: ATORVASTATIN CALCIUM 40 MG TABLET PO SCH (21:50)
[2019-09-18] MEDS: RISPERIDONE 0.5 MG TABLET PO SCH (21:51)
[2019-09-18] MEDS: LATANOPROST 2.5 ML DROPS OU SCH (21:52)
[2019-09-19] VITALS (23 sets, daily range): BP systolic 116–160; BP diastolic 48–96
[2019-09-19] MEDS: SIMETHICONE 80 MG TAB.CHEW PO SCH ×4 (02:47→21:56)
[2019-09-19] MEDS: IPRATROPIUM/ALBUTEROL SULFATE 3 ML SOLUTION IH SCH ×4 (06:14→23:14)
[2019-09-19] MEDS: INSULIN HUMULIN R 100 UNIT/ML 3ML SQ SCH ×4 (06:15→21:00)
[2019-09-19 07:56] LABS: POTASSIUM 5.8 mmol/L (3.5-5.1)
[2019-09-19] MEDS: METOCLOPRAMIDE 5 MG TABLET PO SCH ×3 (08:34→17:10)
[2019-09-19] MEDS: SEVELAMER HCL 800 MG TABLET PO SCH ×3 (08:38→17:10)
[2019-09-19] MEDS: ISOSORBIDE MONO 30MG TAB SR PO SCH (08:38)
[2019-09-19] MEDS: FOLIC ACID/VITAMIN B COMP W-C 1 CAP TAB PO SCH (08:39)
[2019-09-19] MEDS: AMIODARONE HCL 200 MG TABLET PO SCH (08:39)
[2019-09-19] MEDS: HONEY 1 APPL/ML TUBE TP SCH (08:40)
[2019-09-19] MEDS: INSULIN HUMULIN 70/30 100 UNIT/ML 3ML SQ SCH ×2 (08:44→22:00)
[2019-09-19] MEDS: MIDODRINE HCL 5 MG TABLET PO SCH ×3 (08:51→21:00)
[2019-09-19] MEDS ORDERED: PHYTONADIONE 10 MG/1 ML AMP IM SCH ×2 (09:00→16:00)
[2019-09-19] MEDS ORDERED: SODIUM POLYSTYRENE SULFONATE 15 GM/60 ML ML PO SCH (09:15)
[2019-09-19] MEDS ORDERED: SODIUM POLYSTYRENE SULFONATE 15 GM/60 ML ML ONE (10:04)
[2019-09-19 10:21] LABS: HEMATOCRIT 37.9 % (42-54); MEAN CORPUSCULAR HEMOGLOBIN 28.5 pg (27.0-33.0); MEAN CORPUSCULAR HGB CONC 30.6 g/dL (32.0-36.0); MEAN CORPUSCULAR VOLUME 93.1 fL (79-99); PLATELET COUNT (AUTO) 258 K/uL (130-400); RED BLOOD CELL COUNT(AUTO) 4.07 MIL/uL (4.50-6.20); RED CELL DISTRIBUTION WIDTH 16.2 % (11.0-15.5); WHITE BLOOD COUNT (AUTO) 14.7 K/uL (4.8-10.8)
[2019-09-19 11:07] LABS: INR 2.78 (0.85-1.15); PARTIAL THROMBOPLASTIN TIME 45.1 SEC (26.3-35.5); PROTHROMBIN TIME 28.1 SEC (9.6-11.6)
[2019-09-19] MEDS: MEROPENEM 1 GM VIAL IVP SCH (11:47)
[2019-09-19] MEDS: LACTULOSE 20 GM/30 ML UDCUP PO PRN ×2 (12:08→17:13)
[2019-09-19] MEDS: HYDROCODONE/ACETAMINOPHEN 5/325 MG TAB PO PRN (12:09)
[2019-09-19] MEDS ORDERED: SODIUM CHLORIDE 0.9% 500ML 500 ML IV ONE (13:49)
[2019-09-19] MEDS ORDERED: SODIUM CHLORIDE 0.9% 500ML 500 ML IV SCH (14:00)
--- NOTE | 2019-09-19 15:47 | NUR ---
RD FOLLOW UP PT IS TOLERATING CURRENT DIET: RENAL DIALYSIS, 75GMCD, MECHANICAL SOFT/CHOPPED. PT IS AWARE OF FOODS TO AVOID/ RECOMMENDED DUE TO COMPROMISED RENAL FUNCTION. HE IS TOLERATING DIALYSIS AT THIS TIME. Addendum: 09/19/19 at [address] Amended: Links added.
--- NOTE | 2019-09-19 16:00 | NUR ---
PT HAD A FORMED BOWEL MOVEMENT, EXPLAINED TO , THAT SHE SHOULD NOT PLACE ANY PART OF HER HAND INSIDE PTS RECTUM FOR RISK FIN CAUSING HIM TO CODE (VAGAL EFFECT)
[2019-09-19 16:54] LABS: POTASSIUM 4.5 mmol/L (3.5-5.1)
--- NOTE | 2019-09-19 17:00 | NUR ---
DR PITTMAN'S PA IN TO SEE PATIENT. RECEIVED HEART CATH FROM HEART CLINIC OFFICE PLACED IN PROGRESS NOTES. STATES HE IS VERY HIGH RISK FOR SURGERY. THIS WAS EXPLAINED TO PATIENT AND
[2019-09-19 17:01] LABS: INR 2.37 (0.85-1.15); PARTIAL THROMBOPLASTIN TIME 45.3 SEC (26.3-35.5); PROTHROMBIN TIME 24.1 SEC (9.6-11.6)
[2019-09-19] MEDS: PHYTONADIONE 10 MG/1 ML AMP IM SCH (17:10)
[2019-09-19 17:12] LABS: CREATININE 8.7 mg/dL (0.5-1.5)
[2019-09-19] MEDS: RISPERIDONE 0.5 MG TABLET PO SCH (21:56)
[2019-09-19] MEDS: LACTULOSE 20 GM/30 ML UDCUP PO SCH (21:56)
[2019-09-19] MEDS: LATANOPROST 2.5 ML DROPS OU SCH (21:57)
[2019-09-19] MEDS: GABAPENTIN 300 MG CAPSULE PO SCH (21:57)
[2019-09-19] MEDS: ATORVASTATIN CALCIUM 40 MG TABLET PO SCH (21:57)
[2019-09-20] VITALS (27 sets, daily range): BP systolic 101–155; BP diastolic 47–100
[2019-09-20] MEDS: SIMETHICONE 80 MG TAB.CHEW PO SCH ×4 (05:01→22:00)
[2019-09-20 05:47] LABS: HEMATOCRIT 37.1 % (42-54); MEAN CORPUSCULAR HEMOGLOBIN 28.6 pg (27.0-33.0); MEAN CORPUSCULAR HGB CONC 31.3 g/dL (32.0-36.0); MEAN CORPUSCULAR VOLUME 91.4 fL (79-99); PLATELET COUNT (AUTO) 195 K/uL (130-400); RED BLOOD CELL COUNT(AUTO) 4.06 MIL/uL (4.50-6.20); WHITE BLOOD COUNT (AUTO) 13.8 K/uL (4.8-10.8)
[2019-09-20 06:03] LABS: POTASSIUM 4.5 mmol/L (3.5-5.1)
[2019-09-20 06:07] LABS: CREATININE 9.3 mg/dL (0.5-1.5)
[2019-09-20] MEDS: INSULIN HUMULIN R 100 UNIT/ML 3ML SQ SCH ×4 (06:08→21:00)
[2019-09-20] MEDS: IPRATROPIUM/ALBUTEROL SULFATE 3 ML SOLUTION IH SCH ×4 (06:23→23:29)
[2019-09-20] MEDS: SEVELAMER HCL 800 MG TABLET PO SCH ×3 (08:36→17:22)
[2019-09-20] MEDS: FOLIC ACID/VITAMIN B COMP W-C 1 CAP TAB PO SCH (08:36)
[2019-09-20] MEDS: MIDODRINE HCL 5 MG TABLET PO SCH ×3 (08:37→21:47)
[2019-09-20] MEDS: LACTULOSE 20 GM/30 ML UDCUP PO SCH ×3 (08:37→21:47)
[2019-09-20] MEDS: AMIODARONE HCL 200 MG TABLET PO SCH (08:37)
[2019-09-20] MEDS: METOCLOPRAMIDE 5 MG TABLET PO SCH ×3 (08:40→17:22)
[2019-09-20] MEDS: PANTOPRAZOLE SODIUM 40 MG TABLET.DR PO SCH (08:40)
[2019-09-20] MEDS: INSULIN HUMULIN 70/30 100 UNIT/ML 3ML SQ SCH ×2 (08:42→21:00)
[2019-09-20] MEDS: HONEY 1 APPL/ML TUBE TP SCH (08:43)
[2019-09-20] MEDS: ISOSORBIDE MONO 30MG TAB SR PO SCH (09:00)
--- NOTE | 2019-09-20 10:47 | NUR ---
PALLIATIVE CARE CONSULT Sw met with pt who is alert and oriented. Pt reports doctors are telling him he is going to . "I am just waiting to ". Sw asked pt how he felt about this. "I don't believe them. There are other things that can be done, like fat of a goat is good for this". SW asked pt about code status. "I want them to try, you never know". "I want them to keep trying". SW informed pt that doctors are recommending palliative care/hospice. Pt not agreeable at this time Nurse Babb and Tracey schaeffer informed that pt is not agreeable .
[2019-09-20] MEDS: MEROPENEM 1 GM VIAL IVP SCH (12:23)
[2019-09-20] MEDS: HYDROMORPHONE HCL 0.5 MG/0.5 ML ML IVP PRN (13:54)
--- NOTE | 2019-09-20 16:22 | NUR ---
DC PLAN VISITED WITH PATIENT. FAMILY ASKED FOR ME TO COME BACK PATIENT NEEDING TO USE THE BATHROOM. Addendum: 09/20/19 at 1623 by CHINO WINN RN CM Amended: Links added.
--- NOTE | 2019-09-20 17:21 | NUR ---
HOSPICE Sw spoke to nurse Babb who states pt was telling son at bedside that he wants to go home. Nurse discussed need for hospice services if pt was to go home. Nurse asked Sw to talk to pt and son about hospice services. Sw entering room, pt's entered ICU. We began to discuss dcp. I explained to conversation I had with pt in a regarding DNR and conversation nurse had with pt and son regarding leaving AMA, and hospice. states she does not feel that pt really understands everything that is being told to him about the severity of his condition. understands condition and feels pt should be DNR, but she does hot want to do hospice if it means stopping dialysis. "Then he is going to soon, and I am not ready for that". Encouraged to consider making pt DNR which would mean that we continue to treat, but if his heart were to stop, we would not attempt to revive him, we would all him to pass naturally. "That's what I want for him, I do not want him to suffer", said. Son then joined conversation and also agreed that pt should be DNR. Son stated that she was wanting for pt to wake up and if pt still wanted to go home, son would take him. said, "he is not going home, we can't take care of him at home". Son argued with her that there was nothing that doctors or medicine could do for pt and if he wanted to go home, son was going to take him". I asked son, so are you gonig to be there 08/02, to change, feed and medicate your dad? Son did not answer. again stated that she could not care for pt at home. "The nurse said dad can make his own decisions." tried explaining to son that she could not care for pt at home, but son was not listening to her. "I am waiting for dad to wake up and talk to him." Son then states that he was POA for pt and . Explained to son that we would need a copy of it, before we would allow him to make decisions for pt. Sw educated on surrogate decision maker law. Sw encouraged and son, that if home was decided, to please have OOHDNR in place before they leave. SW informed nurse Babb and ROSALIO of above.
[2019-09-20] MEDS: DOCUSATE SODIUM 100 MG CAP PO SCH (17:22)
[2019-09-20] MEDS: RISPERIDONE 0.5 MG TABLET PO SCH (21:47)
[2019-09-20] MEDS: ATORVASTATIN CALCIUM 40 MG TABLET PO SCH (21:47)
[2019-09-20] MEDS: GABAPENTIN 300 MG CAPSULE PO SCH (21:47)
[2019-09-20] MEDS: LATANOPROST 2.5 ML DROPS OU SCH (21:57)
[2019-09-21 00:45] VITALS: BP 124/51
[2019-09-21 04:00] VITALS: BP 104/53
[2019-09-21] MEDS: SIMETHICONE 80 MG TAB.CHEW PO SCH ×3 (04:48→16:43)
[2019-09-21] MEDS: PANTOPRAZOLE SODIUM 40 MG TABLET.DR PO SCH (06:02)
[2019-09-21] MEDS: METOCLOPRAMIDE 5 MG TABLET PO SCH ×3 (06:02→16:43)
[2019-09-21] MEDS: INSULIN HUMULIN R 100 UNIT/ML 3ML SQ SCH ×3 (06:10→16:30)
[2019-09-21] MEDS: IPRATROPIUM/ALBUTEROL SULFATE 3 ML SOLUTION IH SCH ×3 (06:56→17:10)
[2019-09-21] MEDS: SEVELAMER HCL 800 MG TABLET PO SCH ×3 (08:00→16:43)
[2019-09-21 08:14] VITALS: BP 104/58
--- NOTE | 2019-09-21 09:10 | NUR ---
WOUND CARE TO GANGRENOUS FOOT AND BLISTERED HAND NOT DONE RECOMMENDED BY WOUND CARE TEAM. FAMILY HAS OWN TREATMENT FROM HOME. PATIENT VOICED THAT HE'S USED THIS LEDEZMA COLORED POMADE THAT DRIES UP LIKE WAX FOR A LONG TIME AND HAS WORKED FOR HIS FOOT. I INFORMED HIM AND FAMILY THAT WOUND CARE TEAM RECOMMENDED ARABELLA BUT THEY INSIST ON USING THEIR OWN HERBAL MEDICATION.
[2019-09-21] MEDS: LACTULOSE 20 GM/30 ML UDCUP PO SCH ×2 (10:05→13:15)
[2019-09-21] MEDS: ISOSORBIDE MONO 30MG TAB SR PO SCH (10:05)
[2019-09-21] MEDS: MIDODRINE HCL 5 MG TABLET PO SCH ×2 (10:05→13:15)
[2019-09-21] MEDS: FOLIC ACID/VITAMIN B COMP W-C 1 CAP TAB PO SCH (10:05)
[2019-09-21] MEDS: HONEY 1 APPL/ML TUBE TP SCH (10:06)
[2019-09-21] MEDS: INSULIN HUMULIN 70/30 100 UNIT/ML 3ML SQ SCH (10:08)
--- NOTE | 2019-09-21 10:41 | NUR ---
DC PLAN VISITED WITH PATIENT AND FAMILY. SINDY HAD BEEN SIGNED AT THE [facility]. TOUCHED BASE JUST TO MAKE SURE PLAN WAS STILL THE SAME AND THEY WERE OKAY WITH TRANSFER. PER PATIENT AND FAMILY OKAY TO GO TO [facility]. INFO FAXED. REP NOTIFIED. MOT AND EMS SET UP PENDING SIGNATURES. POSSIBLE DC TODAY. Addendum: 09/21/19 at 1042 by CHINO WINN RN CM Amended: Links added.
[2019-09-21] MEDS: AMIODARONE HCL 200 MG TABLET PO SCH (11:37)
[2019-09-21] MEDS: MEROPENEM 1 GM VIAL IVP SCH (11:49)
[2019-09-21 12:08] VITALS: BP 114/68
--- NOTE | 2019-09-21 13:32 | NUR ---
MANUEL WERNER CALLED SAID PATIENT ACCEPTED. LET SQL SERVER DEVELOPER AND NURSE KNOW. EMS SET UP. PENDING MOT CALLED HOUSE NO ANSWER. LET NURSE KNOW AND AN/SYQ 13 NAV/C2 OPERATOR NEEDING SIGNATURES. Addendum: 09/21/19 at 1334 by CHINO WINN RN CM Amended: Links added.
--- NOTE | 2019-09-21 14:18 | NUR ---
1152 gave patient BPCI Letter, family at bedside. Explained that Aleisha Bpci Coordinator would be following up with him within 90 days.
--- NOTE | 2019-09-21 14:20 | NUR ---
PT HAS FAMILY MEMBERS IN THE ROOM. PT DAUGHTER IN LAW IS PERSISTENT ABOUT HAVING US SEND DOCUMENTS TO A CORRECTIONS FACILITY TO HAVE PT'S INCARCERATED SON RELEASED TO SEE PT BECAUSE " HE IS CRITICALLY ILL AND DYING".. I TRIED TO EXPLAIN THAT PROCESS WILL NEED TO BE FOLLOWED AND WE CAN NOT JUST SEND DOCUMENTS TO THE NUMBERS SHE IS HANDING TO ME. I HAVE MADE A COPY AND PLACED IT IN THE CHART. I EXPLAINED TO DAUGHTER IN LAW THAT PT IS NOT ACTIVELY DYING AT PRESENT TIME AND IS NOT "CRITICALLY ILL". HER PERCEPTION IS THAT SINCE HE HAD A "CARDIAC ARREST" AND "THERE IS NOTHING TO BE DONE" THAT IT WILL EXPEDITE OUR PROCESS. I HAVE NOTIFIED MOE SULLIVAN ARE MILK BOTTLER AND SHE HAS ALSO SPOKEN TO DAUGHTER IN LAW AND IS STARTING PROCESS TO HELP. DAUGHTER IS UPSET AND WOULD ALSO LIKE TO SPEAK TO OUR PT ADVOCATE. I HAVE CALLED MERY FERNÁNDEZ PT ADVOCATE DESK AND LEFT A MESSAGE TO RETURN OUR CALL. THANK YOU.
--- NOTE | 2019-09-21 15:45 | NUR ---
LETTER TO PERRY Padmaja contacted by Theresa, charge nurse. Dgtr in [facility] wanting information faxed to [facility] [place] for penitentiary to release son to visit pt. Padmaja and Theresa met with daughter in law who was demanding that we fax information she'd written to Tobias at [place] [facility]. I informed daughter that I would need contact information for cask maker to verify and send what he is needing.Explained they will request letter signed by MD with additional information regarding condition. Daughter was yelling, "you don't need to call him, I just gave you the information he is needing". Explained to daughter that we can't just send information like this to penitentiary. Prisons require it be on hospital letterhead and it be faxed from hospital. Daughter continued to yell at me and tell me that her father in law was dying yesterday and is critically ill and this letter must be faxed immediately."you weren't there yesterday, so you wouldn't know". I told daughter in law not to talk down to me. I was aware of his condition because I did spend most of yesterday in pt's room and with family". Daughter in law said " don't smile at me, I am totally serious about this. My father in law is dying". I asked pt's son to please give me contact # and I will verify what is needed. Padmaja called [place] and was told cask maker was out to try again later. Person who answered phone could not give me any information on process. PADMAJA got letter headed and wrote letter with all information provided by daughter in law and gave contact information for nurses station. Padmaja fax letter and gave original letter, and conformation to son. Copy of documents placed in chart. PADMAJA informed CM of above. Cm states pt is accepted to [facility] and will transfer today.
[2019-09-21 16:31] VITALS: BP 139/63
--- NOTE | 2019-09-21 16:31 | NUR ---
FAMILY REFUSED BATH OFFERED BY ATIF MACK.
[2019-09-21] MEDS: DOCUSATE SODIUM 100 MG CAP PO SCH (16:43)
--- NOTE | 2019-09-21 17:00 | NUR ---
SBAR REPORT HANDED TO YARELIS COATES AT [facility]. ALL QUESTIONS WERE ANSWERED.
== END 2019-09-21 18:00 | DRG 871 ==
LOC: EDH 12:48 → EDHIP 12:49 → 4DH 20:33 → 2AH 09-08 19:04 → 4DH 09-08 19:47 → 2CV 09-08 20:26 → 2CH 09-08 21:43 → 2BH 09-13 08:38 → 2DH 09-20 19:09
PROVIDERS: ADMIT Internal Medicine; ATTEND Internal Medicine
PROC: 5A1D70Z Performance of Urinary Filtration, Intermittent, Less than 6 Hours Per Day (ICD-10-PCS; 2019-09-06)
PROC: 5A1D70Z Performance of Urinary Filtration, Intermittent, Less than 6 Hours Per Day (ICD-10-PCS; 2019-09-08)
PROC: 5A12012 Performance of Cardiac Output, Single, Manual (ICD-10-PCS; 2019-09-08)
PROC: 5A1D70Z Performance of Urinary Filtration, Intermittent, Less than 6 Hours Per Day (ICD-10-PCS; 2019-09-11)
PROC: 5A1D70Z Performance of Urinary Filtration, Intermittent, Less than 6 Hours Per Day (ICD-10-PCS; 2019-09-13)
PROC: 5A1D70Z Performance of Urinary Filtration, Intermittent, Less than 6 Hours Per Day (ICD-10-PCS; 2019-09-15)
PROC: 5A1D70Z Performance of Urinary Filtration, Intermittent, Less than 6 Hours Per Day (ICD-10-PCS; 2019-09-18)
PROC: 30233K1 Transfusion of Nonautologous Frozen Plasma into Peripheral Vein, Percutaneous Approach (ICD-10-PCS; principal; 2019-09-19)
PROC: 30233N1 Transfusion of Nonautologous Red Blood Cells into Peripheral Vein, Percutaneous Approach (ICD-10-PCS; 2019-09-19)
PROC: 5A1D70Z Performance of Urinary Filtration, Intermittent, Less than 6 Hours Per Day (ICD-10-PCS; 2019-09-19)
PROC: 5A1D70Z Performance of Urinary Filtration, Intermittent, Less than 6 Hours Per Day (ICD-10-PCS; 2019-09-20)
DX: A41.9 Sepsis, unspecified organism (principal); N18.6 End stage renal disease; I49.01 Ventricular fibrillation; J96.01 Acute respiratory failure with hypoxia; I46.9 Cardiac arrest, cause unspecified; R65.21 Severe sepsis with septic shock; I50.23 Acute on chronic systolic (congestive) heart failure; I46.2 Cardiac arrest due to underlying cardiac condition; E11.52 Type 2 diabetes mellitus with diabetic peripheral angiopathy with gangrene; I12.0 Hypertensive chronic kidney disease with stage 5 chronic kidney disease or end stage renal disease; M86.9 Osteomyelitis, unspecified; D68.9 Coagulation defect, unspecified; Z16.24 Resistance to multiple antibiotics; L97.409 Non-pressure chronic ulcer of unspecified heel and midfoot with unspecified severity; L03.114 Cellulitis of left upper limb; I13.2 Hypertensive heart and chronic kidney disease with heart failure and with stage 5 chronic kidney disease, or end stage renal disease; Z16.12 Extended spectrum beta lactamase (ESBL) resistance; I82.619 Acute embolism and thrombosis of superficial veins of unspecified upper extremity; E11.22 Type 2 diabetes mellitus with diabetic chronic kidney disease; E11.622 Type 2 diabetes mellitus with other skin ulcer; E11.69 Type 2 diabetes mellitus with other specified complication; I99.8 Other disorder of circulatory system; I25.5 Ischemic cardiomyopathy; B96.20 Unspecified Escherichia coli [E. coli] as the cause of diseases classified elsewhere; Z51.5 Encounter for palliative care; D64.9 Anemia, unspecified; E11.621 Type 2 diabetes mellitus with foot ulcer; E66.9 Obesity, unspecified; Z68.29 Body mass index [BMI] 29.0-29.9, adult; E78.00 Pure hypercholesterolemia, unspecified; E78.5 Hyperlipidemia, unspecified; E87.5 Hyperkalemia; F41.9 Anxiety disorder, unspecified; G47.30 Sleep apnea, unspecified; I25.10 Atherosclerotic heart disease of native coronary artery without angina pectoris; I48.91 Unspecified atrial fibrillation; I70.209 Unspecified atherosclerosis of native arteries of extremities, unspecified extremity; K59.00 Constipation, unspecified; Z53.9 Procedure and treatment not carried out, unspecified reason; Z66 Do not resuscitate; Z99.2 Dependence on renal dialysis; I25.2 Old myocardial infarction; Z74.01 Bed confinement status; Z79.02 Long term (current) use of antithrombotics/antiplatelets; Z79.4 Long term (current) use of insulin; Z79.82 Long term (current) use of aspirin; Z79.899 Other long term (current) drug therapy; Z89.511 Acquired absence of right leg below knee; Z89.512 Acquired absence of left leg below knee; Z91.19 Patient's noncompliance with other medical treatment and regimen
CPT/HCPCS: 36415; 36430; 71045; 80048; 80053; 80074; 80202; 82435; 82803; 82947; 82948; 83605; 83735; 84100; 84132; 84295; 85018; 85025; 85027; 85610; 85730; 86850; 86900; 86901; 86922; 86927; 87071; 87077; 87186; 87205; 90935; 92950; 93005; 93306; 93931; 93971; 94002; 94003; 94150; 94640; 94664; 94667; 94668; A4344; C1757; G0378; J0171; J0282; J0330; J0690; J0713; J1100; J1170; J1265; J1644; J1815; J2001; J2185; J2250; J2370; J2405; J2704; J2710; J3010; J3370; J3430; J3475; J3490; J7030; J7040; J7060; J7070; J7608; P9016; P9017; P9046; P9047